=== PATIENT | male | born 1955 | race Caucasian/White ===

== ENCOUNTER 2018-07-19 08:00 | Inpatient (IN) | payer OTHER ==
[2018-07-16 10:58] VITALS: BMI 28.5
[2018-07-19] MEDS ORDERED: BUPIVACAINE LIPOSOME/PF (EXPAREL) 266 MG/20 ML VIAL ONE ×2 (14:20→14:29)
[2018-07-19] MEDS ORDERED: BUPIVACAINE HCL/PF 0.5% (5MG/ML) 10 ML VIAL ONE ×2 (14:20→14:29)
[2018-07-19] MEDS ORDERED: MIDAZOLAM HCL 2 MG/2 ML SINGLE DOSE VIAL ONE ×2 (14:21)
[2018-07-19] MEDS ORDERED: THROMBIN (BOVINE) 5,000 UNIT VIAL TP ONE ×2 (14:36→16:23)
[2018-07-19] MEDS ORDERED: PROPOFOL 20 ML ONE ×14 (14:46→17:36)
[2018-07-19] MEDS ORDERED: HYDROmorphone HCl 2 MG/ML VIAL ONE (15:17)
[2018-07-19] MEDS ORDERED: ceFAZolin SODIUM 1 GM VIAL IVPB ONE (15:30)
[2018-07-19] MEDS ORDERED: VANCOMYCIN 1,000 MG VIAL (RESTRICTED TO ID ONLY) ONE (15:39)
[2018-07-19] MEDS ORDERED: DEXAMETHASONE SOD PHOSPHATE 4 MG/1 ML VIAL ONE ×2 (15:39→15:57)
[2018-07-19] MEDS ORDERED: ceFAZolin SODIUM 1 GM VIAL ONE (15:39)
[2018-07-19] MEDS ORDERED: TRANEXAMIC ACID 1000 MG/10 ML VIAL ONE ×2 (15:39→18:10)
[2018-07-19] MEDS ORDERED: ROCURONIUM BROMIDE 50 MG/5 ML VIAL ONE (15:45)
[2018-07-19] MEDS ORDERED: ONDANSETRON 4 MG/2 ML VIAL ONE (15:45)
[2018-07-19] MEDS ORDERED: VANCOMYCIN 1,000 MG VIAL (RESTRICTED TO ID ONLY) IVPB ONE (15:45)
[2018-07-19] MEDS ORDERED: DEXMEDETOMIDINE HCL 200 MCG/2 ML IVPB ONE ×2 (15:56→16:04)
[2018-07-19] MEDS ORDERED: PHENYLEPHRINE HCL 10 MG/1 ML SINGLE DOSE VIAL ONE (15:59)
[2018-07-19] MEDS ORDERED: GELATIN, ABSORBABLE 12-7MM EACH SPONGE TP ONE (16:23)
[2018-07-19] MEDS ORDERED: NEOSTIGMINE METHYLSULFATE 0.5 MG/1 ML - 10 ML MDV ONE (16:31)
[2018-07-19] MEDS ORDERED: GLYCOPYRROLATE 0.2 MG/1 ML VIAL ONE (16:31)
--- NOTE | 2018-07-19 16:35 | PN ---
Progress Note (short form) - Note Progress Note: 63M POD #0 s/p: 1. Removal of hardware L4-L5 2. Inspection of fusion mass 3. L3 laminectomy 4. Revision laminectomy L4, L5 5. L3, L4, L5 osteotomies (facetectomies) 6. L3-L4 posterior lumbar interbody fusion with discectomy, and placement of biomechanical device (cage) 7. L3-L4 posterior instrumentation 8. L3-L4 posterolateral arthrodesis with bone allograft & bone autograft 9. Complex wound closure (20cm) Note: Intra-operative durotomy repair. -Head of bed flat w/strict bedrest x 48 hours post-op due to durotomy. -Admit to ICU. -Pain control: NO NSAID's. -DVT PPx: -Mechanical only: DAYNE's, SCD's. -Chemical: None. -NPO until flatus. -Monitor drain output: drain strictly to gravity only - IE no suction. -Incentive spirometry q15 min; chest PT. -Tompkins care; d/c when ambulating. -Post-op Ancef x 3 doses. -No bending, lifting (>5 lbs), or twisting for 9-12 months. -Care per ICU & medical hospitalist teams. -Will follow. Samir Tuttle MD (Orthopaedic Surgery).
--- NOTE | 2018-07-19 16:36 | OP ---
Operative Note - Note: Operative Date: 07/19/18 Pre-Operative Diagnosis: Adjacent level disease L3-L4. Radiculopathy. Neurogenic claudication. Back ache Operation: 1. Removal of hardware L4-L5. 2. Inspection of fusion mass. 3. L3 laminectomy. 4. Revision laminectomy L4, L5. 5. L3, L4, L5 osteotomies ( facetectomies). 6. L3-L4 posterior lumbar interbody fusion with discectomy, and placement of biomechanical device (cage). 7. L3-L4 posterior instrumentation. 8. L3-L4 posterolateral arthrodesis with bone allograft & bone autograft. 9. Complex wound closure (20cm) Post-Operative Diagnosis: Same as Pre-op Surgeon: Samir Tuttle Operations And Maintenance Specialist: Declan Tuttle Anesthesiologist/METER CHANGES RECORDS CLERK: Sy Esparza Anesthesia: General Specimens Removed: Hardware. L3-L4 disc Estimated Blood Loss (mls): 400 Drains & Tubes with Location: 1 x superficial HemoVac Fluid Volume Replaced (mls): 3,000 (Crystalloid) Operative Report Dictated: Yes
[2018-07-19] MEDS ORDERED: ONDANSETRON 4 MG/2 ML VIAL IVPUSH PRN (19:23)
[2018-07-19] MEDS ORDERED: ACETAMINOPHEN 1000 MG/100 ML VIAL (NON FORMULARY) IVPB ONE (19:26)
[2018-07-19] MEDS ORDERED: HYDROmorphone *PCA* 10MG/50ML DISP.SYRIN PCA SCH (19:30)
[2018-07-19] MEDS ORDERED: ACETAMINOPHEN INJECTION 100 ML IVPB ONE (19:40)
[2018-07-19] MEDS: ACETAMINOPHEN 1000 MG/100 ML VIAL (NON FORMULARY) IVPB SCH (19:45)
[2018-07-19] MEDS: LACTATED RINGERS SOLUTION 1,000 ML IV SCH (21:00)
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
--- NOTE | 2018-07-19 21:27 | OP ---
DATE OF OPERATION: 07/19/2018 SURGEON: Samir Tuttle MD GROCERY CLERK: Declan Tuttle MD PREOPERATIVE DIAGNOSIS: Adjacent level spinal stenosis, kyphosis, and segmental instability of L3-L4, previous L4-L5 fusion. POSTOPERATIVE DIAGNOSIS: Adjacent level spinal stenosis, kyphosis, and segmental instability of L3-L4, previous L4-L5 fusion. OPERATION PERFORMED: 1. Removal of hardware of L4-L5. 2. Inspection of fusion mass. 3. Laminectomy L3. 4. Revision laminectomy L4. 5. Incidental durotomy with repair. 6. Posterior lumbar interbody fusion with interbody cage insertion. 7. Anterior arthrodesis with autologous bone graft. 8. L3-L4 posterior arthrodesis. 9. L3-L4 pedicle screw instrumentation. 10. Complex wound closure of 20 cm. ANESTHESIA: General. ANTIBIOTICS GIVEN: Kefzol 2 g, 1 g vancomycin preoperative and 1 g Kefzol given at the end of the procedure. NEUROMONITORING: Utilized. INTRAOPERTIVE FLUOROSCOPY: Utilized. BLOOD LOSS: Approximately 400 mL OPERATION DETAILS: Patient correctly identified and brought to the operating room. Patient was placed prone under general anesthesia onto a Wojciech table. All appropriate bony points were padded. The face and eyes were padded. The original incision, after appropriate window draping with the use of betadine scrub solution, wiped off with alcohol, and DuraPrep being applied, a midline incision was made extending this proximally by about an inch and a half. This gave a 20-cm wound. The dissection was taken through the skin and subcutaneous tissue down to the spinous process. A subperiosteal dissection was performed exposing the spinous process of L3 as well as L2 and extending all of the way down to L5, because of the hardness of the tissues and enabled adequate exposure to the area of L3, L4, and L5. The L3-L4 level was identified clearly and dissection was taken down to the interspinous plane and then out obliquely to the hardware that was in situ. This was old DePuy instrumentation, which was removed without any difficulty. The mass was inspected and found to be completely solidly fused. New screws at L3 were inserted using anatomical guidelines as the entry point of the routine insertion points for pedicle screws in the laminar process and the transection of the superior facet and transverse process. At that point, the drill was inserted into the pedicle. This 4.5 drill enabled easy passage for a 45 x 6.5 Precision screw. This enabled solid fixation at L3 on both the left- and right-hand sides. New Prescription screws were seated at L4 on the left- and right-hand side. These screws were tested with intraoperative neuromonitoring and evaluated with fluoroscopic x-ray. No complications were seen on AP and lateral fluoroscopic x-rays. The screws were tested well above the 30 mm parameters, as noted. Once the screws had been seated, a complete laminectomy of L3 was performed. This posed to be extremely difficulty because of the adherence and stuck down area of stenosis. This correlated with the weakness in the thighs and the neuromonitoring revealed neural readings into the thigh musculature. Once the laminectomy at L2 was performed using lateral osteotomes, the pars interarticularis was longitudinally incised to open the canal followed by imploding the bone inwards towards the canal and then delivering the bone completely at L3 and extending this down to the revision of the original L4 level as this was blocked up with bone and fibrous tissue. Extensive stenosis encountered at the L3-L4 level. This was tediously removed using 4, 5, and 6 Kerrison rongeurs. The theca was completely freed. Two small dural tears because of the adherence of the dura to the back portion of the new bone formation of the lamina of L4 was noted and these were sutured with 4-0 nylon with 2 separate sequential Valsalva maneuvers to 40 mmHg being pumped into the lung palm to expand the theca and this resulted in a water-tight seal. Surgicel with fibrin glue was sprayed over the water-tight suture line of the dura and again adding additional seal to the actual durotomy. Once this was performed, the theca at the level of L3-L4 from the right side was retracted. Epidural blades were dealt with, with bipolar Bovie. This resulted in very adequate exposure of the disk at L3-L4. An elliptical incision of the annulus was performed, shaving this to size 13 and all disk material was removed. Serrated curettes enabled us to ensure that all disk material was removed with the endplates. The interbody plane was then packed with bone. This was bone harvested from the posterior elements and packed into the interbody space to provide the anterior arthrodesis. Once this had been performed, the Biomechanical inter-disk device was placed. This was packed with bone graft itself and seated solidly into the disk space opening up the disk space and foramen appropriately. The screws, which had already been seated, were then used for fixation of the 2 rods. These were seated into tulips and fixed solidly into position. One crosslink applied to provide a solid construct fixation. The muscle was then gently retracted off of the transverse processes and the intertransverse plane was packed with autologous bone graft mixed with allograft putty to provide a very adequate bone grafting between the L3 and L4 transverse processes. That was bone graft to raw bone appropriately. The wounds were thoroughly lavaged throughout the procedure. The dura was then repeat inspected for a dural tear, which proved to be once again negative. The muscle was appropriately debrided following the entire procedure. The closure was as follows: Muscle 1 Vicryl, fascia 1 Vicryl, subcutaneous tissue 1 and 2-0 Vicryl, skin with linnea. Drainage: One-eighth inch Hemovac to gravity. This was accomplished. Wound closure was 20 cm. OVERALL COMMENT: Difficult operation because of the adherence of the dura to the adjacent level stenotic region. The dura had become encased in part of the bone bed necessitating appropriate dural repair. At the end of the procedure, all principles were appropriately met accordingly. Plan for routine postoperative care. MD DANYEL Dodson/[id number]
--- NOTE | 2018-07-19 21:39 | PN ---
Physical Exam: SUBJECTIVE: 63 year old male with history of CAD with 1 stent and tobacco use who is POD #0 s/p: 1. Removal of hardware L4-L5 2. Inspection of fusion mass 3. L3 laminectomy 4. Revision laminectomy L4, L5 5. L3, L4, L5 osteotomies (facetectomies) 6. L3-L4 posterior lumbar interbody fusion with discectomy, and placement of biomechanical device (cage) 7. L3-L4 posterior instrumentation 8. L3-L4 posterolateral arthrodesis with bone allograft & bone autograft 9. Complex wound closure (20cm) Patient was seen and examined. He reports back pain. He has a JEWELER APPRENTICE analgesic pump and instructed to use when needed. Blood pressure and heart rate are normal. He is afebrile. He denies chest pain, shortness of breath, or dizziness. He is moving both legs with good sensation. OBJECTIVE: Vital Signs Period Temp Pulse Resp BP Sys/العلي Pulse Ox Last 24 Hr 99.3 F 70-82 14-16 101-114/69-78 95-100 GENERAL:awake, alert, and fully oriented HEAD: normal with no signs of trauma EYES: pupils equal round and reactive ENT: ears normal NECK: limited ROM LUNGS: breath sounds equal clear to auscultation bilaterally no wheezes no crackles no accessory muscle use HEART: regular rate and rhythm S1 S2 without murmur ABDOMEN: soft and nontender EXTREMITIES: 2+ pulses warm well-perfused no edema NEUROLOGICAL: normal speech follows commands appropriately good sensation to bilateral lower extremities reports less sensation to his big toes on touch, moving bilateral lower extremities and able to wiggle his toes PSYCH: mood normal SKIN: warm dry no rashes or lesions noted Laboratory Results - last 24 hr 07/19/18 07/19/18 10:33 11:30 Blood Type O NEGATIVE O NEGATIVE Antibody Screen Negative Active Medications Generic Name Dose Route Start Last Admin Trade Name Freq PRN Reason Stop Dose Admin Acetaminophen 1,000 mg 07/19/18 19:30 07/19/18 19:45 Ofirmev Injection - IVPB 07/20/18 11:31 1,000 mg Q8H LUCY Administration Acetaminophen 650 mg 07/20/18 18:00 Tylenol - PO Q6HPO LUCY Hydromorphone HCl 10 mg 07/19/18 19:30 07/19/18 19:30 Dilaudid Proofsheet Corrector - JEWELER APPRENTICE 07/26/18 19:27 10 mg JEWELER APPRENTICE LUCY Administration Protocol Lactated Ringer's 1,000 mls @ 125 mls/hr 07/19/18 19:30 07/19/18 21:00 Lactated Ringers Solution IV 0 mls ASDIR LUCY Administration Cefazolin Sodium/Dextrose 2 gm in 50 mls @ 100 mls/hr 07/20/18 00:00 Ancef 2 Gm Premixed Ivpb - IVPB 07/20/18 08:29 Q8H LUCY Ondansetron HCl 4 mg 07/19/18 19:23 Zofran Injection IVPUSH Q6H PRN NAUSEA AND/OR VOMITING Oxycodone HCl 10 mg 07/19/18 22:00 Oxycontin - PO 07/20/18 21:59 BID LUCY ASSESSMENT/PLAN: 63M POD #0 s/p: 1. Removal of hardware L4-L5 2. Inspection of fusion mass 3. L3 laminectomy 4. Revision laminectomy L4, L5 5. L3, L4, L5 osteotomies (facetectomies) 6. L3-L4 posterior lumbar interbody fusion with discectomy, and placement of biomechanical device (cage) 7. L3-L4 posterior instrumentation 8. L3-L4 posterolateral arthrodesis with bone allograft & bone autograft 9. Complex wound closure (20cm) Patient is hemodynamically stable and afebrile. -Continue with pain management- no NSAID's. -DVT Prophylaxsis with SCD's and TEDS,no oral anticoagulation as contraindicated. -NPO until flatus. -Monitor drain output: drain strictly to gravity only - IE no suction. -Incentive spirometry q15 min; chest PT. -Tompkins care; d/c when ambulating. -Continue with post-op ancef x 3 doses. -As per Orthopedics he is to avoid bending, lifting (>5 lbs), or twisting for 9- 12 months. Visit type - Emergency Visit Emergency Visit: No - New Patient This patient is new to me today: Yes Date on this admission: 07/19/18 - Critical Care Critical Care patient: No
[2018-07-19] MEDS: oxyCODONE HCL 10 MG SUSTAINED ACTING TABLET PO SCH (22:29)
[2018-07-19] MEDS: MUPIROCIN 2% TOPICAL OINTMENT FOR DECOLONIZATION NS SCH (22:30)
[2018-07-19] MEDS: CHLORHEXIDINE GLUCONATE 4% CLEANSER FOR DECOLONIZATION TP SCH (22:31)
[2018-07-20] MEDS ORDERED: ceFAZolin 2 GRAM PREMIX BAG IVPB SCH (01:00)
[2018-07-20] MEDS: ACETAMINOPHEN 1000 MG/100 ML VIAL (NON FORMULARY) IVPB SCH ×2 (03:30→12:00)
[2018-07-20 06:45] LABS: HEMATOCRIT 36.8 % (35.4-49); HEMOGLOBIN 12.7 GM/dL (11.7-16.9); MCHC 34.5 g/dl (32.0-35.9); MEAN CELL VOLUME 101.6 fl (80-96); MEAN PLT VOLUME 8.1 fl (7.5-11.1); PLATELET COUNT 252 K/MM3 (134-434); RBC 3.62 M/mm3 (4.00-5.60); RDW 13.2 % (11.9-15.9); WHITE BLOOD COUNT 10.3 K/mm3 (4.0-10.0)
[2018-07-20 07:11] LABS: INR 0.96 (0.83-1.09); PROTHROMBIN TIME (PATIENT) 11.3 SEC (9.7-13.0)
[2018-07-20 07:14] LABS: ACTIVATED PTT 26.2 SECONDS (25.2-36.5)
[2018-07-20 07:19] LABS: ANION GAP 5 MMOL/L (8-16); BLOOD UREA NITROGEN 14 mg/dL (7-18); CALCIUM 8.8 mg/dL (8.5-10.1); CHLORIDE 106 mmol/L (98-107); CO2 28 mmol/L (21-32); CREATININE 0.8 mg/dL (0.55-1.3); GLUCOSE,RANDOM 100 mg/dL (74-106); MAGNESIUM 1.5 mg/dL (1.8-2.4); PHOSPHOROUS 4.6 mg/dL (2.5-4.9); POTASSIUM 4.9 mmol/L (3.5-5.1); SODIUM 139 mmol/L (136-145)
[2018-07-20] MEDS: CEFAZOLIN 2 GM/D5W 2 GM/50 ML ML IVPB SCH ×2 (07:39)
[2018-07-20] MEDS ORDERED: MAGNESIUM SULF 50% (8.12 MEQ/2 ML-1 GM VIAL) IVPB ONE (07:45)
[2018-07-20] MEDS ORDERED: NICOTINE 14 MG/24 HOURS TOPICAL PATCH TD PRN (08:36)
--- NOTE | 2018-07-20 10:25 | PN ---
Progress Note, Physician Chief Complaint: Lumbar fusion post op day one History of Present Illness: s/p removal of hardware lumbar and fusion, peripheral nerve block with brushing machine operator for post op pain control - Current Medication List Current Medications: Active Medications Acetaminophen (Ofirmev Injection -) 1,000 mg IVPB Q8H [facility] Stop: 07/20/18 11:31 Last Admin: 07/20/18 03:30 Dose: 1,000 mg Acetaminophen (Tylenol -) 650 mg PO Q6HPO [facility] Chlorhexidine Gluconate (Hibiclens For Decolonization -) 1 applic TP HS [facility] Last Admin: 07/19/18 22:31 Dose: 1 applic Hydromorphone HCl (Dilaudid Sociology Instructor -) 10 mg BOTTLE FILLER BOTTLE FILLER [facility]; Protocol Stop: 07/26/18 19:27 Lactated Ringer's (Lactated Ringers Solution) 1,000 mls @ 125 mls/hr IV ASDIR [facility] Last Admin: 07/19/18 21:00 Dose: 0 mls Mupirocin (Bactroban Ointment (For Decolonization) -) 1 applic NS BID [facility] Stop: 07/24/18 21:59 Last Admin: 07/19/18 22:30 Dose: 1 applic Nicotine (Nicoderm Patch -) 14 mg TD DAILY PRN PRN Reason: WITHDRAWAL(CONT SUBST) Ondansetron HCl (Zofran Injection) 4 mg IVPUSH Q6H PRN PRN Reason: NAUSEA AND/OR VOMITING Oxycodone HCl (Oxycontin -) 10 mg PO BID [facility] Stop: 07/20/18 21:59 Last Admin: 07/19/18 22:29 Dose: Not Given - Objective Vital Signs: Vital Signs Temperature 98.1 F 07/20/18 10:00 Pulse Rate 76 07/20/18 10:00 Respiratory Rate 11 07/20/18 10:00 Blood Pressure 135/85 07/20/18 10:00 O2 Sat by Pulse Oximetry (%) 96 07/19/18 21:00 Constitutional: Yes: Well Nourished, Mild Distress Cardiovascular: Yes: WNL Respiratory: Yes: WNL Gastrointestinal: Yes: WNL Labs: CBC, BMP 07/20/18 05:30 07/20/18 05:30 INR, PTT INR 0.96 (0.83-1.09) 07/20/18 05:30 Assessment/Plan Pain not controlled by brushing machine operator, will increase demand dose and start continuous. dept of anesthesia will continue to manage BOTTLE FILLER. No other adverse anesthetic complications.
[2018-07-20] MEDS: HYDROmorphone *PCA* 10MG/50ML DISP.SYRIN PCA SCH (10:40)
[2018-07-20] MEDS: MUPIROCIN 2% TOPICAL OINTMENT FOR DECOLONIZATION NS SCH ×2 (11:54→22:15)
--- NOTE | 2018-07-20 12:08 | PN ---
Teaching Attending Note Name of Resident: Gilbert Silverman ATTENDING PHYSICIAN STATEMENT I saw and evaluated the patient. I reviewed the resident's note and discussed the case with the resident. I agree with the resident's findings and plan as documented. SUBJECTIVE: Patient seen and examined in the ICU. Awake and alert. Reports significant pain but has not been pressing MANAGER ONCOLOGY. Reports some improvement with proper use. No CP or SOB. Intake & Output 07/17/18 07/18/18 07/19/18 07/20/18 23:59 23:59 23:59 23:59 Intake Total 3400 1550 Output Total 2100 20 Balance 1300 1530 Weight 210 lb Last Vital Signs Temp Pulse Resp BP Pulse Ox 98.1 F 92 H 17 120/75 95 07/20/18 10:00 07/20/18 10:40 07/20/18 10:40 07/20/18 10:40 07/20/18 09:00 Active Medications Acetaminophen (Tylenol -) 650 mg PO Q6HPO [facility] Chlorhexidine Gluconate (Hibiclens For Decolonization -) 1 applic TP HS [facility] Last Admin: 07/19/18 22:31 Dose: 1 applic Hydromorphone HCl (Dilaudid [place] Miner Blasting -) 10 mg MANAGER ONCOLOGY MANAGER ONCOLOGY [facility]; Protocol Stop: 07/26/18 19:27 Last Admin: 07/20/18 10:40 Dose: 10 mg Lactated Ringer's (Lactated Ringers Solution) 1,000 mls @ 125 mls/hr IV ASDIR [facility] Last Admin: 07/19/18 21:00 Dose: 0 mls Mupirocin (Bactroban Ointment (For Decolonization) -) 1 applic NS BID [facility] Stop: 07/24/18 21:59 Last Admin: 07/19/18 22:30 Dose: 1 applic Nicotine (Nicoderm Patch -) 14 mg TD DAILY PRN PRN Reason: WITHDRAWAL(CONT SUBST) Ondansetron HCl (Zofran Injection) 4 mg IVPUSH Q6H PRN PRN Reason: NAUSEA AND/OR VOMITING Oxycodone HCl (Oxycontin -) 10 mg PO BID [facility] Stop: 07/20/18 21:59 Last Admin: 07/19/18 22:29 Dose: Not Given GENERAL: Awake, alert, and fully oriented, in no acute distress. HEAD: Normal with no signs of trauma. EYES: sclera anicteric, conjunctiva clear. No lid lag. THROAT: dry mucous membranes. NECK: no JVD, or masses. LUNGS: Breath sounds equal, clear to auscultation bilaterally. No wheezes, and no crackles. No accessory muscle use. HEART: Regular rate and rhythm, normal S1 and S2 without murmur ABDOMEN: Soft, nontender, not distended, normoactive bowel sounds, no guarding, no rebound, no masses. No hepatomegaly or splenomegaly. UPPER EXTREMITIES: 2+ pulses, warm, well-perfused. No cyanosis. No clubbing. Cap refill <2 seconds. No peripheral edema. LOWER EXTREMITIES: 2+ pulses, warm, well-perfused. No calf tenderness. No peripheral edema. NEUROLOGICAL: Normal speech. strength BL UE 5/5 and UE sensation intact; BL LE strength 3/5 bl with decreased sensation of palmar and dorsal feet Laboratory Results - last 24 hr 07/19/18 07/20/18 07/20/18 11:30 05:30 05:30 WBC 10.3 H RBC 3.62 L Hgb 12.7 Hct 36.8 MCV 101.6 H MCH 35.0 H MCHC 34.5 RDW 13.2 Plt Count 252 MPV 8.1 PT with INR INR PTT (Actin FS) Sodium 139 Potassium 4.9 Chloride 106 Carbon Dioxide 28 Anion Gap 5 L BUN 14 Creatinine 0.8 Creat Clearance w eGFR 98.28 Random Glucose 100 Calcium 8.8 Phosphorus 4.6 Magnesium 1.5 L Blood Type O NEGATIVE 07/20/18 05:30 WBC RBC Hgb Hct MCV MCH MCHC RDW Plt Count MPV PT with INR 11.30 INR 0.96 PTT (Actin FS) 26.2 Sodium Potassium Chloride Carbon Dioxide Anion Gap BUN Creatinine Creat Clearance w eGFR Random Glucose Calcium Phosphorus Magnesium Blood Type ASSESSMENT/PLAN: CAD POD #1: 1. Removal of hardware L4-L5 2. Inspection of fusion mass 3. L3 laminectomy 4. Revision laminectomy L4, L5 5. L3, L4, L5 osteotomies (facetectomies) 6. L3-L4 posterior lumbar interbody fusion with discectomy, and placement of biomechanical device (cage) 7. L3-L4 posterior instrumentation 8. L3-L4 posterolateral arthrodesis with bone allograft & bone autograft 9. Complex wound closure (20cm) Pain control with Dilaudid MANAGER ONCOLOGY O2 as needed Incentive Spirometry VTE prophylaxis No NSAIDS NPO until flatus Strict drain monitoring D/C Tompkins once OOB Post-op Ancef x 3 doses. Floor when cleared by surgery Dr Vaz
[2018-07-20] MEDS: oxyCODONE HCL 10 MG SUSTAINED ACTING TABLET PO SCH (12:17)
--- NOTE | 2018-07-20 15:37 | PN ---
Physical Exam: SUBJECTIVE: Patient seen and examined HD# 2 ICU Day 2 POD 1 Overnight Events: Pt received into ICU from OR. Pt reported pain to operative site this morning but indicated to nurse he was unsure of how to use CONTROL CLERK SUBASSEMBLY pump. Nurse provided education and pt reports improved pain control. Denies chest pain, shortness of breath, or weakness/numbness. OBJECTIVE: Vital Signs Period Temp Pulse Resp BP Sys/العلي Pulse Ox Last 24 Hr 97 F-99.9 F 62-92 11-24 101-135/52-98 95-100 Intake & Output 07/20/18 07/20/18 07/20/18 06:59 14:59 22:59 Intake Total 1550 Output Total 1285 Balance 265 Intake: IV 1500 Lactated Ringers Solution 1500 1,000 ml @ 125 mls/hr IV ASDIR LUCY Rx#: [id number] IVPB 50 Output: Drainage 85 Back 85 Urine 1200 Tompkins 1200 Other: Voiding Method Indwelling Catheter Bowel Movement No Lines: - PIV Drains: - Tompkins - Wound drain Supplemental Oxygen: None 12 Hour I/Os (thus far): I/Os not strictly monitored. Physical Exams: GENERAL: The patient is awake, alert, and fully oriented, in no acute distress. HEAD: Normal with no signs of trauma. LUNGS: Breath sounds equal, clear to auscultation bilaterally, no wheezes, no crackles, no accessory muscle use. HEART: Regular rate and rhythm, S1, S2 without murmur, rub or gallop. ABDOMEN: Soft, nontender, nondistended. EXTREMITIES: 2+ pulses, warm, well-perfused, no edema. NEUROLOGICAL: Moving all four extremities spontaneously. PSYCH: Normal mood, normal affect. SKIN: Warm and dry. Drips: - LR @ 125 Anti Infectives: - Ancef Laboratory Results - last 24 hr 07/20/18 07/20/18 07/20/18 05:30 05:30 05:30 WBC 10.3 H RBC 3.62 L Hgb 12.7 Hct 36.8 MCV 101.6 H MCH 35.0 H MCHC 34.5 RDW 13.2 Plt Count 252 MPV 8.1 PT with INR 11.30 INR 0.96 PTT (Actin FS) 26.2 Sodium 139 Potassium 4.9 Chloride 106 Carbon Dioxide 28 Anion Gap 5 L BUN 14 Creatinine 0.8 Creat Clearance w eGFR 98.28 Random Glucose 100 Calcium 8.8 Phosphorus 4.6 Magnesium 1.5 L Active Medications Generic Name Dose Route Start Last Admin Trade Name Freq PRN Reason Stop Dose Admin Acetaminophen 650 mg 07/20/18 18:00 Tylenol - PO Q6HPO [facility] Chlorhexidine Gluconate 1 applic 07/19/18 22:00 07/19/18 22:31 Hibiclens For Decolonization - TP 1 applic HS LUCY Administration Hydromorphone HCl 10 mg 07/20/18 10:22 07/20/18 10:40 Dilaudid Clinical Resource Director - CONTROL CLERK SUBASSEMBLY 07/26/18 19:27 10 mg CONTROL CLERK SUBASSEMBLY LUCY Administration Protocol Lactated Ringer's 1,000 mls @ 125 mls/hr 07/19/18 19:30 07/19/18 21:00 Lactated Ringers Solution IV 0 mls ASDIR LUCY Administration Mupirocin 1 applic 07/19/18 22:00 07/20/18 11:54 Bactroban Ointment (For Decolonization) - NS 07/24/18 21:59 1 applic BID LUCY Administration Nicotine 14 mg 07/20/18 08:36 Nicoderm Patch - TD DAILY PRN WITHDRAWAL(CONT SUBST) Ondansetron HCl 4 mg 07/19/18 19:23 Zofran Injection IVPUSH Q6H PRN NAUSEA AND/OR VOMITING Oxycodone HCl 10 mg 07/19/18 22:00 07/20/18 12:17 Oxycontin - PO 07/20/18 21:59 Not Given BID [facility] ASSESSMENT/PLAN: 63 year old male with history of L4,L5 fusion, CAD s/p stent. S/p: 1. Removal of hardware L4-L5 2. Inspection of fusion mass 3. L3 laminectomy 4. Revision laminectomy L4, L5 5. L3, L4, L5 osteotomies (facetectomies) 6. L3-L4 posterior lumbar interbody fusion with discectomy, and placement of biomechanical device (cage) 7. L3-L4 posterior instrumentation 8. L3-L4 posterolateral arthrodesis with bone allograft & bone autograft 9. Complex wound closure (20cm) Surgery complicated by intraoperative durotomy. Post-op care plan per Dr. Tuttle. Neuro (& Psych): - A/O x4. No sedation drips. - S/p lumbar spinal surgery as detailed above. Head of bed flat w/strict bedrest x 48 hours post-op due to durotomy. [facility]. - Pain control: Dilaudid CONTROL CLERK SUBASSEMBLY with oxycodone for breakthrough. No NSAIDS. - Zofran PRN for nausea. - Active smoker. Ordered Nicotine patch PRN. Endocrine: - Hypomagnesemia this morning. Replenished. - Will continue to trend electrolyte. Cardiovascular: - CAD holding antiplatelet therapy given recent surgery Pulm / Resp: - Transitioned from nasal cannula to room air without difficulty. - Encouraged IS Genitourinary: - Tompkins until ambulatory Hematologic: - H/H stable this morning. - Drain to gravity. Monitor output. Infectious Disease: - Post-op Ancef x3 doses Musculoskeletal: - No bending, lifting (>5 lbs), or twisting for 9-12 months FEN: - IVF - NPO. Will advance to clear sips but not full clear diet for 48 hours for aspiration precautions. Prophylaxis: - DVT: DAYNE's, SCD's. - GI: Not indicated. Dispo: Pt to remain in ICU for further post-op monitoring and neuro checks. Gilbert Silverman MD, PGY1 ICU Consult Service Visit type - Emergency Visit Emergency Visit: No - New Patient This patient is new to me today: Yes Date on this admission: 07/20/18 - Critical Care Critical Care patient: Yes Total Critical Care Time (in minutes): 40 Critical Care Statement: The care of this patient involved high complexity decision making to prevent further life threatening deterioration of the patient 's condition and/or to evaluate & treat vital organ system(s) failure or risk of failure.
--- NOTE | 2018-07-20 18:06 | PN ---
Physical Exam: SUBJECTIVE: Patient seen and examined 24HR EVENTS: - s/p L3 laminectomy with hardware removal - pt to be in supine x 48hours OBJECTIVE: Vital Signs Period Temp Pulse Resp BP Sys/العلي Pulse Ox Last 24 Hr 97 F-99.9 F 62-92 10 101-135/52-98 95-100 GENERAL: The patient is awake, alert, and fully oriented, in no acute distress. HEAD: Normal with no signs of trauma. EYES: PERRL, extraocular movements intact, sclera anicteric, conjunctiva clear. No ptosis. ENT: nares patent, oropharynx clear without exudates, moist mucous membranes. NECK: Trachea midline, full range of motion, supple. LUNGS: Breath sounds equal, clear to auscultation bilaterally, no wheezes, no crackles, no accessory muscle use. HEART: Regular rate and rhythm, S1, S2 without murmur, rub or gallop. ABDOMEN: Soft, nontender, nondistended, normoactive bowel sounds, no guarding, no rebound, no hepatosplenomegaly, no masses. EXTREMITIES: 2+ pulses, warm, well-perfused, no edema. NEUROLOGICAL: normal sensation in extremties. Normal speech, gait not observed. PSYCH: Normal mood, normal affect. SKIN: Warm, dry, normal turgor, extensive tattoos Laboratory Results - last 24 hr 07/20/18 07/20/18 07/20/18 05:30 05:30 05:30 WBC 10.3 H RBC 3.62 L Hgb 12.7 Hct 36.8 MCV 101.6 H MCH 35.0 H MCHC 34.5 RDW 13.2 Plt Count 252 MPV 8.1 PT with INR 11.30 INR 0.96 PTT (Actin FS) 26.2 Sodium 139 Potassium 4.9 Chloride 106 Carbon Dioxide 28 Anion Gap 5 L BUN 14 Creatinine 0.8 Creat Clearance w eGFR 98.28 Random Glucose 100 Calcium 8.8 Phosphorus 4.6 Magnesium 1.5 L Active Medications Generic Name Dose Route Start Last Admin Trade Name Freq PRN Reason Stop Dose Admin Acetaminophen 650 mg 07/20/18 18:00 Tylenol - PO Q6HPO LUCY Chlorhexidine Gluconate 1 applic 07/19/18 22:00 07/19/18 22:31 Hibiclens For Decolonization - TP 1 applic HS LUCY Administration Hydromorphone HCl 10 mg 07/20/18 10:22 07/20/18 10:40 Dilaudid Commodities Requirements Analyst - GRAZING EXAMINER 07/26/18 19:27 10 mg GRAZING EXAMINER LUCY Administration Protocol Lactated Ringer's 1,000 mls @ 125 mls/hr 07/19/18 19:30 07/19/18 21:00 Lactated Ringers Solution IV 0 mls ASDIR LUCY Administration Mupirocin 1 applic 07/19/18 22:00 07/20/18 11:54 Bactroban Ointment (For Decolonization) - NS 07/24/18 21:59 1 applic BID LUCY Administration Nicotine 14 mg 07/20/18 08:36 Nicoderm Patch - TD DAILY PRN WITHDRAWAL(CONT SUBST) Ondansetron HCl 4 mg 07/19/18 19:23 Zofran Injection IVPUSH Q6H PRN NAUSEA AND/OR VOMITING Oxycodone HCl 10 mg 07/19/18 22:00 07/20/18 12:17 Oxycontin - PO 07/20/18 21:59 Not Given BID [facility] ASSESSMENT/PLAN: 63 year old male with history of CAD s/p PCI, tobacco use and LE paresthesias now POD #1 s/p removal of hardware lumbar and fusion, peripheral nerve block with iron guardrail installer for post op pain control -Pain management with dilaudid GRAZING EXAMINER . NO NSAID's. -DVT Prophylaxsis with SCD's and TEDS, oral anticoagulation as contraindicated. -NPO until flatus. -Monitor drain output: drain strictly to gravity only -LR at 125ml/hr -Incentive spirometry q15 min; chest PT. -Tompkins care; d/c when ambulating. -Completed ancef x 3 doses. -As per Orthopedics he is to avoid bending, lifting (>5 lbs), or twisting for 9- 12 months. Problem List - Problems (1) Prophylactic measure Code(s): Z29.9 - ENCOUNTER FOR PROPHYLACTIC MEASURES, UNSPECIFIED (2) Tobacco dependence Code(s): F17.200 - NICOTINE DEPENDENCE, UNSPECIFIED, UNCOMPLICATED (3) Back pain Code(s): M54.9 - DORSALGIA, UNSPECIFIED Qualifiers: Back pain location: low back pain Chronicity: chronic Back pain laterality: bilateral Sciatica presence: with sciatica Sciatica laterality: sciatica of right side Qualified Code(s): M54.41 - Lumbago with sciatica, right side; G89.29 - Other chronic pain Visit type - Emergency Visit Emergency Visit: No - New Patient This patient is new to me today: Yes Date on this admission: 07/20/18 - Critical Care Critical Care patient: Yes Total Critical Care Time (in minutes): 40 Critical Care Statement: The care of this patient involved high complexity decision making to prevent further life threatening deterioration of the patient 's condition and/or to evaluate & treat vital organ system(s) failure or risk of failure. - Discharge Referral Referred to [facility] Med P.C.: No
[2018-07-20] MEDS: ACETAMINOPHEN 325 MG TABLET (FP) PO SCH ×2 (18:10→20:00)
[2018-07-20] MEDS: LACTATED RINGERS SOLUTION 1,000 ML IV SCH (20:05)
[2018-07-20] MEDS: CHLORHEXIDINE GLUCONATE 4% CLEANSER FOR DECOLONIZATION TP SCH (22:15)
[2018-07-21] MEDS: ACETAMINOPHEN 325 MG TABLET (FP) PO SCH ×4 (01:37→17:31)
[2018-07-21] MEDS: HYDROmorphone *PCA* 10MG/50ML DISP.SYRIN PCA SCH ×2 (03:36→20:34)
[2018-07-21 06:56] LABS: HEMOGLOBIN 11.4 GM/dL (11.7-16.9); MCH 34.8 pg (25.7-33.7); MCHC 34.5 g/dl (32.0-35.9); MEAN CELL VOLUME 100.9 fl (80-96); MEAN PLT VOLUME 8.4 fl (7.5-11.1); PLATELET COUNT 201 K/MM3 (134-434); RBC 3.27 M/mm3 (4.00-5.60); RDW 13.2 % (11.9-15.9)
[2018-07-21 07:13] LABS: ANION GAP 5 MMOL/L (8-16); BLOOD UREA NITROGEN 9 mg/dL (7-18); CALCIUM 8.3 mg/dL (8.5-10.1); CHLORIDE 99 mmol/L (98-107); CO2 30 mmol/L (21-32); CREATININE 0.7 mg/dL (0.55-1.3); GLUCOSE,RANDOM 97 mg/dL (74-106); MAGNESIUM 1.6 mg/dL (1.8-2.4); PHOSPHOROUS 2.2 mg/dL (2.5-4.9); POTASSIUM 3.6 mmol/L (3.5-5.1); SODIUM 134 mmol/L (136-145)
[2018-07-21] MEDS ORDERED: MAGNESIUM SULF 50% (8.12 MEQ/2 ML-1 GM VIAL) IVPB ONE (07:25)
[2018-07-21] MEDS ORDERED: POTASSIUM CHLORIDE ORAL LIQUID 20 MEQ/15 ML PO ONE (09:15)
[2018-07-21] MEDS: MUPIROCIN 2% TOPICAL OINTMENT FOR DECOLONIZATION NS SCH ×2 (10:56→22:35)
--- NOTE | 2018-07-21 10:57 | PN ---
Progress Note (short form) - Note Progress Note: Anesthesiology Pain Service 63 y.o. man POD#2 s/p lumbar PLIF on SENIOR SALES MANAGER for post-op pain. Pt. is supine in bed and c/o pain with flexion of back. He states that he can't get into an upright position without significant pain. At moment, he states that the pain is about 7-10/10. SENIOR SALES MANAGER has helped a little. He otherwise has no complaints. The pt. states that he was on a regimen of PO meds for a short time prior to undergoing surgery that did help somewhat. VSS. 63 y.o. man with pain post-op PLIF. I d/w pt. to d/c SENIOR SALES MANAGER and instead switch him to a scheduled dosing of PO oxycontin as well as PRN doses of oxycodone for breakthrough pain in hopes of getting pain under control. He and RN are agreeable with this plan. Please consult Anesthesiology if any issue arises with these changes.
[2018-07-21] MEDS ORDERED: oxyCODONE HCL 10 MG SUSTAINED ACTING TABLET PO SCH ×3 (11:00→22:00)
[2018-07-21] MEDS: oxyCODONE HCL 5 MG TABLET PO PRN ×4 (11:29→20:45)
--- NOTE | 2018-07-21 11:52 | PN ---
Progress Note, Physician History of Present Illness: Seen and examined at bedside. Passing flatus, tolerating liquid diet, still in pain while despite being on DIRECT MAIL COORDINATOR, did not receive any PO pain relief. - Current Medication List Current Medications: Active Medications Acetaminophen (Tylenol -) 650 mg PO Q6HPO [facility] Last Admin: 07/21/18 05:45 Dose: 650 mg Chlorhexidine Gluconate (Hibiclens For Decolonization -) 1 applic TP HS [facility] Last Admin: 07/20/18 22:15 Dose: 1 applic Lactated Ringer's (Lactated Ringers Solution) 1,000 mls @ 125 mls/hr IV ASDIR [facility] Last Admin: 07/20/18 20:05 Dose: 125 mls/hr Mupirocin (Bactroban Ointment (For Decolonization) -) 1 applic NS BID [facility] Stop: 07/24/18 21:59 Last Admin: 07/21/18 10:56 Dose: 1 applic Nicotine (Nicoderm Patch -) 14 mg TD DAILY PRN PRN Reason: WITHDRAWAL(CONT SUBST) Ondansetron HCl (Zofran Injection) 4 mg IVPUSH Q6H PRN PRN Reason: NAUSEA AND/OR VOMITING Oxycodone HCl (Roxicodone -) 5 mg PO Q3H PRN PRN Reason: PAIN LEVEL 1-5 Last Admin: 07/21/18 11:29 Dose: 5 mg Oxycodone HCl (Roxicodone -) 10 mg PO Q3H PRN PRN Reason: PAIN LEVEL 6-10 Oxycodone HCl (Oxycontin -) 20 mg PO BID [facility] Stop: 07/24/18 10:47 - Objective Vital Signs: Vital Signs Temperature 98.6 F 07/21/18 10:00 Pulse Rate 85 07/21/18 10:00 Respiratory Rate 23 H 07/21/18 10:00 Blood Pressure 110/73 07/21/18 10:00 O2 Sat by Pulse Oximetry (%) 95 07/21/18 09:00 Constitutional: Yes: Calm Cardiovascular: Yes: Regular Rate and Rhythm, S1, S2. No: Murmur Respiratory: Yes: CTA Bilaterally Gastrointestinal: Yes: Normal Bowel Sounds, Soft. No: Tenderness Edema: No Neurological: Yes: Alert, Oriented Labs: CBC, BMP 07/21/18 05:30 07/21/18 05:30 INR, PTT INR 0.96 (0.83-1.09) 07/20/18 05:30 Impression/Plan Impression/Plan: 63 y/o M L4,L5 fusion, CAD s/p stent s/p spinal surgery (refer to ortho note for details of procedures) now POD 2: MSK: s/p spinal surgery POD2 - cont. head of bed flat w/strict bedrest x 48 hours post-op due to durotomy - neuro checks qShift. - Pain control: d/c DIRECT MAIL COORDINATOR by anesthesia, will re-start percocet - Zofran PRN for nausea. - No bending, lifting (>5 lbs), or twisting for 9-12 months Cardiovascular: - CAD holding antiplatelet therapy given recent surgery Pulm / Resp: - Stable Genitourinary: - Tompkins until ambulatory Hematologic: - cont. to monitor H/H FEN: - follow lytes - liquid diet, advance per ortho Prophylaxis: - DVT: DAYNE's, SCD's. - GI: Not indicated. Dispo: Pt to remain in ICU for further post-op monitoring and neuro checks. Adair Castro PGY3 Visit type - Emergency Visit Emergency Visit: No - New Patient This patient is new to me today: No - Critical Care Critical Care patient: Yes Total Critical Care Time (in minutes): 35 Critical Care Statement: The care of this patient involved high complexity decision making to prevent further life threatening deterioration of the patient 's condition and/or to evaluate & treat vital organ system(s) failure or risk of failure.
--- NOTE | 2018-07-21 12:13 | PN ---
Teaching Attending Note Name of Resident: Adair Castro ATTENDING PHYSICIAN STATEMENT I saw and evaluated the patient. I reviewed the resident's note and discussed the case with the resident. I agree with the resident's findings and plan as documented. SUBJECTIVE: Pt seen and examined in the ICU. Still with significant pain. Low grade fevers overnight. Denies shortness of breath or chest pain. No nausea or vomiting. + flatus. OBJECTIVE: Vital Signs Period Temp Pulse Resp BP Sys/العلي Pulse Ox Last 24 Hr 97.9 F-100.7 F 78-95 10-23 93-142/70-92 95-95 Intake & Output 07/18/18 07/19/18 07/20/18 07/21/18 23:59 23:59 23:59 23:59 Intake Total 3400 3116 1688 Output Total 2100 1735 1480 Balance 1300 1381 208 Weight 95.254 kg 95.254 kg Gen: NAD at rest Heart: RRR Lung: decreased breath sounds at the bases Abd: soft, nontender Ext: no edema Drain with serosanguinous fluid CBC, BMP 07/21/18 05:30 07/21/18 05:30 Active Medications Acetaminophen (Tylenol -) 650 mg PO Q6HPO [facility] Last Admin: 07/21/18 05:45 Dose: 650 mg Chlorhexidine Gluconate (Hibiclens For Decolonization -) 1 applic TP HS [facility] Last Admin: 07/20/18 22:15 Dose: 1 applic Lactated Ringer's (Lactated Ringers Solution) 1,000 mls @ 125 mls/hr IV ASDIR [facility] Last Admin: 07/20/18 20:05 Dose: 125 mls/hr Mupirocin (Bactroban Ointment (For Decolonization) -) 1 applic NS BID [facility] Stop: 07/24/18 21:59 Last Admin: 07/21/18 10:56 Dose: 1 applic Nicotine (Nicoderm Patch -) 14 mg TD DAILY PRN PRN Reason: WITHDRAWAL(CONT SUBST) Ondansetron HCl (Zofran Injection) 4 mg IVPUSH Q6H PRN PRN Reason: NAUSEA AND/OR VOMITING Oxycodone HCl (Roxicodone -) 5 mg PO Q3H PRN PRN Reason: PAIN LEVEL 1-5 Last Admin: 07/21/18 11:29 Dose: 5 mg Oxycodone HCl (Roxicodone -) 10 mg PO Q3H PRN PRN Reason: PAIN LEVEL 6-10 Oxycodone HCl (Oxycontin -) 20 mg PO BID LUCY Stop: 07/24/18 10:47 ASSESSMENT AND PLAN: Lumbar Radiculopathy and Neurogenic Claudication s/p VEENA L4-L5/L3 laminectomy/L3-4 PLIF/Cage placement/Posterior Instrumentation/ Durotomy Repair CAD Smoker - pain control - incentive spirometry - monitor drain output - strict bedrest per surgery - bowel regimen - d/c woo when OOB - PO as tolerated - DVT prophylaxis
[2018-07-21 16:24] LABS: PH,URINE 7.5 (5.0-8.0); URINE APPEARANCE CLEAR; URINE BILIRUBIN NEGATIVE (NEGATIVE); URINE COLOR YELLOW; URINE GLUCOSE (UA) NEGATIVE (NEGATIVE); URINE KETONE NEGATIVE (NEGATIVE); URINE LEUK ESTERASE NEGATIVE (NEGATIVE); URINE NITRITE NEGATIVE (NEGATIVE); URINE PROTEIN NEGATIVE (NEGATIVE); URINE UROBILINOGEN 0.2 mg/dL (0.2-1.0)
--- NOTE | 2018-07-21 19:02 | PN ---
Physical Exam: SUBJECTIVE: Patient seen and examined 24 HR EVENTS: -passing flatus. -no acute events OBJECTIVE: Vital Signs Period Temp Pulse Resp BP Sys/العلي Pulse Ox Last 24 Hr 98.6 F-101.3 F 79-98 10-23 93-167/70-113 95-95 GENERAL: The patient is awake, alert, and fully oriented, in no acute distress. HEAD: Normal with no signs of trauma. EYES: PERRL, extraocular movements intact, sclera anicteric, conjunctiva clear. No ptosis. ENT: nares patent, oropharynx clear without exudates, moist mucous membranes. NECK: Trachea midline, full range of motion, supple. LUNGS: Breath sounds equal, clear to auscultation bilaterally, no wheezes, no crackles, no accessory muscle use. HEART: Regular rate and rhythm, S1, S2 without murmur, rub or gallop. ABDOMEN: Soft, nontender, nondistended, normoactive bowel sounds, no guarding, no rebound, no hepatosplenomegaly, no masses. EXTREMITIES: 2+ pulses, warm, well-perfused, no edema. NEUROLOGICAL: normal sensation in extremties. Normal speech, PSYCH: Normal mood, normal affect. SKIN: Warm, dry, normal turgor, extensive tattoos Laboratory Results - last 24 hr 07/21/18 07/21/18 07/21/18 05:30 05:30 14:45 WBC 8.0 RBC 3.27 L Hgb 11.4 L Hct 33.0 L MCV 100.9 H MCH 34.8 H MCHC 34.5 RDW 13.2 Plt Count 201 D MPV 8.4 Sodium 134 L Potassium 3.6 Chloride 99 Carbon Dioxide 30 Anion Gap 5 L BUN 9 Creatinine 0.7 Creat Clearance w eGFR 114.65 Random Glucose 97 Calcium 8.3 L Phosphorus 2.2 L Magnesium 1.6 L Urine Color Yellow Urine Appearance Clear Urine pH 7.5 D Ur Specific [place] 1.007 L Urine Protein Negative Urine Glucose (UA) Negative Urine Ketones Negative Urine Blood Negative Urine Nitrite Negative Urine Bilirubin Negative Urine Urobilinogen 0.2 Ur Leukocyte Esterase Negative Active Medications Generic Name Dose Route Start Last Admin Trade Name Freq PRN Reason Stop Dose Admin Acetaminophen 650 mg 07/20/18 18:00 07/21/18 17:31 Tylenol - PO 650 mg Q6HPO LUCY Administration Chlorhexidine Gluconate 1 applic 07/19/18 22:00 07/20/18 22:15 Hibiclens For Decolonization - TP 1 applic HS LUCY Administration Lactated Ringer's 1,000 mls @ 125 mls/hr 07/19/18 19:30 07/20/18 20:05 Lactated Ringers Solution IV 125 mls/hr ASDIR LUCY Administration Mupirocin 1 applic 07/19/18 22:00 07/21/18 10:56 Bactroban Ointment (For Decolonization) - NS 07/24/18 21:59 1 applic BID LUCY Administration Nicotine 14 mg 07/20/18 08:36 Nicoderm Patch - TD DAILY PRN WITHDRAWAL(CONT SUBST) Ondansetron HCl 4 mg 07/19/18 19:23 Zofran Injection IVPUSH Q6H PRN NAUSEA AND/OR VOMITING Oxycodone HCl 5 mg 07/21/18 10:46 07/21/18 11:29 Roxicodone - PO 5 mg Q3H PRN Administration PAIN LEVEL 1-5 Oxycodone HCl 10 mg 07/21/18 10:46 07/21/18 17:32 Roxicodone - PO 10 mg Q3H PRN Administration PAIN LEVEL 6-10 Oxycodone HCl 20 mg 07/21/18 11:21 Oxycontin - PO 07/24/18 10:47 BID [facility] ASSESSMENT/PLAN: 63 year old male with history of CAD s/p PCI, tobacco use and LE paresthesias now POD #1 s/p removal of hardware lumbar and fusion, peripheral nerve block with immigration case manager for post op pain control. -Pain management with oxycodone . NO NSAID's. -DVT Prophylaxsis with SCD's and TEDS, oral anticoagulation is contraindicated. -clear liquid diet -nicoderm patch -Monitor drain output: drain strictly to gravity only -LR at 125ml/hr -Incentive spirometry q1H -Tompkins care; d/c when ambulating. -As per Orthopedics he is to avoid bending, lifting (>5 lbs), or twisting for 9- 12 months Code status: Full DISPO: ok to step down to floor in the morning Problem List - Problems (1) Prophylactic measure Code(s): Z29.9 - ENCOUNTER FOR PROPHYLACTIC MEASURES, UNSPECIFIED (2) Tobacco dependence Code(s): F17.200 - NICOTINE DEPENDENCE, UNSPECIFIED, UNCOMPLICATED (3) Back pain Code(s): M54.9 - DORSALGIA, UNSPECIFIED Qualifiers: Back pain location: low back pain Chronicity: chronic Back pain laterality: bilateral Sciatica presence: with sciatica Sciatica laterality: sciatica of right side Qualified Code(s): M54.41 - Lumbago with sciatica, right side; G89.29 - Other chronic pain Visit type - Emergency Visit Emergency Visit: No - New Patient This patient is new to me today: No - Critical Care Critical Care patient: No - Discharge Referral Referred to [facility] Med P.C.: No
[2018-07-21] MEDS: LACTATED RINGERS SOLUTION 1,000 ML IV SCH (20:34)
[2018-07-21] MEDS ORDERED: PT OWN MED DRAWER 7, Y5N ONE (20:41)
[2018-07-21] MEDS: oxyCODONE HCL 10 MG SUSTAINED ACTING TABLET PO SCH (22:36)
[2018-07-21] MEDS: CHLORHEXIDINE GLUCONATE 4% CLEANSER FOR DECOLONIZATION TP SCH (22:36)
[2018-07-22] MEDS: ACETAMINOPHEN 325 MG TABLET (FP) PO SCH ×5 (00:58→19:22)
[2018-07-22] MEDS: oxyCODONE HCL 5 MG TABLET PO PRN ×6 (01:49→21:04)
[2018-07-22 06:24] LABS: HEMATOCRIT 33.2 % (35.4-49); HEMOGLOBIN 11.8 GM/dL (11.7-16.9); MCHC 35.6 g/dl (32.0-35.9); MEAN CELL VOLUME 98.5 fl (80-96); MEAN PLT VOLUME 8.5 fl (7.5-11.1); PLATELET COUNT 193 K/MM3 (134-434); RBC 3.37 M/mm3 (4.00-5.60); RDW 13.2 % (11.9-15.9); WHITE BLOOD COUNT 9.5 K/mm3 (4.0-10.0)
[2018-07-22 06:49] LABS: ANION GAP 6 MMOL/L (8-16); BLOOD UREA NITROGEN 6 mg/dL (7-18); CALCIUM 8.4 mg/dL (8.5-10.1); CHLORIDE 97 mmol/L (98-107); CO2 29 mmol/L (21-32); CREATININE 0.6 mg/dL (0.55-1.3); GLUCOSE,RANDOM 109 mg/dL (74-106); MAGNESIUM 1.6 mg/dL (1.8-2.4); POTASSIUM 3.4 mmol/L (3.5-5.1); SODIUM 132 mmol/L (136-145)
[2018-07-22] MEDS ORDERED: MAGNESIUM SULF 50% (8.12 MEQ/2 ML-1 GM VIAL) IVPB ONE (07:36)
[2018-07-22] MEDS ORDERED: POTASSIUM CHLORIDE TABS 20 MEQ TABLET.ER (FP) PO ONE (07:36)
[2018-07-22] MEDS: DOCUSATE SODIUM 100 MG CAPSULE (FP) PO SCH ×2 (09:04→22:05)
[2018-07-22] MEDS: oxyCODONE HCL 10 MG SUSTAINED ACTING TABLET PO SCH ×2 (09:05→22:04)
--- NOTE | 2018-07-22 11:39 | PN ---
Teaching Attending Note Name of Resident: Gilbert Silverman ATTENDING PHYSICIAN STATEMENT I saw and evaluated the patient. I reviewed the resident's note and discussed the case with the resident. I agree with the resident's findings and plan as documented. SUBJECTIVE: Patient seen and examined in the ICU. Awake and alert. Reports less pain but still 6/10. No CP or SOB. Intake & Output 07/19/18 07/20/18 07/21/18 07/22/18 23:59 23:59 23:59 23:59 Intake Total 3400 3116 3761 1700 Output Total 2100 1735 3840 2500 Balance 1300 1381 -79 -800 Weight 210 lb 210 lb Last Vital Signs Temp Pulse Resp BP Pulse Ox 99.5 F 93 H 16 141/81 93 L 07/22/18 10:00 07/22/18 10:00 07/22/18 10:00 07/22/18 10:00 07/22/18 09:00 Active Medications Acetaminophen (Tylenol -) 650 mg PO Q6HPO [facility] Last Admin: 07/22/18 08:07 Dose: 650 mg Chlorhexidine Gluconate (Hibiclens For Decolonization -) 1 applic TP HS [facility] Last Admin: 07/21/18 22:36 Dose: 1 applic Docusate Sodium (Colace -) 100 mg PO BID [facility] Last Admin: 07/22/18 09:04 Dose: 100 mg Lactated Ringer's (Lactated Ringers Solution) 1,000 mls @ 125 mls/hr IV ASDIR [facility] Last Admin: 07/21/18 20:34 Dose: 125 mls/hr Mupirocin (Bactroban Ointment (For Decolonization) -) 1 applic NS BID [facility] Stop: 07/24/18 21:59 Last Admin: 07/21/18 22:35 Dose: 1 applic Nicotine (Nicoderm Patch -) 14 mg TD DAILY PRN PRN Reason: WITHDRAWAL(CONT SUBST) Ondansetron HCl (Zofran Injection) 4 mg IVPUSH Q6H PRN PRN Reason: NAUSEA AND/OR VOMITING Last Admin: 07/22/18 06:45 Dose: 4 mg Oxycodone HCl (Roxicodone -) 5 mg PO Q3H PRN PRN Reason: PAIN LEVEL 1-5 Last Admin: 07/21/18 11:29 Dose: 5 mg Oxycodone HCl (Roxicodone -) 10 mg PO Q3H PRN PRN Reason: PAIN LEVEL 6-10 Last Admin: 07/22/18 08:02 Dose: 10 mg Oxycodone HCl (Oxycontin -) 20 mg PO BID [facility] Stop: 07/24/18 10:47 Last Admin: 07/22/18 09:05 Dose: 20 mg Senna (Senna -) 2 tab PO HS [facility] GENERAL: Awake, alert, and fully oriented, in no acute distress. HEAD: Normal with no signs of trauma. EYES: sclera anicteric, conjunctiva clear. No lid lag. THROAT: dry mucous membranes. NECK: no JVD, or masses. LUNGS: Breath sounds equal, clear to auscultation bilaterally. No wheezes, and no crackles. No accessory muscle use. HEART: Regular rate and rhythm, normal S1 and S2 without murmur ABDOMEN: Soft, nontender, not distended, normoactive bowel sounds, no guarding, no rebound, no masses. No hepatomegaly or splenomegaly. UPPER EXTREMITIES: 2+ pulses, warm, well-perfused. No cyanosis. No clubbing. Cap refill <2 seconds. No peripheral edema. LOWER EXTREMITIES: 2+ pulses, warm, well-perfused. No calf tenderness. No peripheral edema. NEUROLOGICAL: Normal speech. strength BL UE 5/5 and UE sensation intact; BL LE strength 3/5 bl with decreased sensation of palmar and dorsal feet Laboratory Results - last 24 hr 07/21/18 07/22/18 07/22/18 14:45 05:30 05:30 WBC 9.5 RBC 3.37 L Hgb 11.8 Hct 33.2 L MCV 98.5 H MCH 35.0 H MCHC 35.6 RDW 13.2 Plt Count 193 MPV 8.5 Sodium 132 L Potassium 3.4 L Chloride 97 L Carbon Dioxide 29 Anion Gap 6 L BUN 6 L Creatinine 0.6 Creat Clearance w eGFR 136.97 Random Glucose 109 H Calcium 8.4 L Magnesium 1.6 L Urine Color Yellow Urine Appearance Clear Urine pH 7.5 D Ur Specific [place] 1.007 L Urine Protein Negative Urine Glucose (UA) Negative Urine Ketones Negative Urine Blood Negative Urine Nitrite Negative Urine Bilirubin Negative Urine Urobilinogen 0.2 Ur Leukocyte Esterase Negative ASSESSMENT/PLAN: CAD POD #1: 1. Removal of hardware L4-L5 2. Inspection of fusion mass 3. L3 laminectomy 4. Revision laminectomy L4, L5 5. L3, L4, L5 osteotomies (facetectomies) 6. L3-L4 posterior lumbar interbody fusion with discectomy, and placement of biomechanical device (cage) 7. L3-L4 posterior instrumentation 8. L3-L4 posterolateral arthrodesis with bone allograft & bone autograft 9. Complex wound closure (20cm) Pain control O2 as needed Incentive Spirometry VTE prophylaxis No NSAIDS PO as tolerated Strict drain monitoring D/C Tompkins once OOB Floor Dr Vaz
--- NOTE | 2018-07-22 11:41 | PATH ---
Surgical Pathology Report Patient Name: TIFFANIE DELVALLE Med. Rec. #: [id number] /Age/Gender: 1955 (Age: 63) / M Account: [id number] Location: ICU ELECTRICAL CONTINUITY TESTER Taken: 07/19/2018 Received: 07/20/2018 Reported: 07/22/2018 Physicians: Samir Tuttle M.D. 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 ORTHOPEDIC HARDWARE, LUMBAR, REMOVAL: METALLIC ORTHOPEDIC HARDWARE (GROSS ONLY). B. INTERVERTEBRAL DISC, L3-4, PARTIAL EXCISION: PORTIONS OF INTERVERTEBRAL DISC, AND FRAGMENTS OF BONE. Electronically Signed Aravind Mei M.D. Gross Description A. Received fresh labeled "hardware," is a 7.7 cm greatest dimension metallic clamp-like structure as well as 2 cedeno metallic, bent rods averaging 4.2 cm in length. Also received within the same container are 8 metallic screws ranging from 0.4-6.0 cm in length. No soft tissue is present. No sections are submitted, gross only. B. Received in formalin labeled "disc," is a 4.5 x 2.3 x 0.4 cm aggregate of richter fragments of fibrocartilaginous tissue. A senior patient account representative portion is submitted in one cassette. 07/21/201807/21/2018
--- NOTE | 2018-07-22 14:57 | PN ---
Physical Exam: SUBJECTIVE: Patient seen and examined HD# 4 ICU Day 4 POD 3 Overnight Events: Pt febrile overnight without hypotension or tachycardia. This morning, the pt complaining of pain to surgical site rated 7/10; states baseline is 6/10. Denies chest pain, SOB, or numbness/tingling. Endorses feeling hot and flushed at periods overnight. OBJECTIVE: Vital Signs Period Temp Pulse Resp BP Sys/العلي Pulse Ox Last 24 Hr 99.5 F-101 F 80-96 11-19 121-167/67-98 93-94 Intake & Output 07/21/18 07/22/18 07/22/18 22:59 06:59 14:59 Intake Total 1873 1700 Output Total 960 2500 Balance 913 -800 Intake: IV 1513 1500 Lactated Ringers Solution 1474 1500 1,000 ml @ 125 mls/hr IV ASDIR [facility]UCY Rx#: [id number] DIE CUTTER DIAMOND 39 Oral 360 200 Output: Drainage 60 0 Back 60 0 Urine 900 2500 [place] 900 2500 Other: Voiding Method Indwelling Catheter Urinal Bowel Movement Yes Lines: - PIV Drains: - Tompkins - Wound drain w/ serosanguinous output in container Supplemental Oxygen: None Physical Exams: GENERAL: The patient is awake, alert, and fully oriented, in no acute distress. HEAD: Normal with no signs of trauma. LUNGS: Breath sounds equal, clear to auscultation bilaterally, no wheezes, no crackles, no accessory muscle use. HEART: Regular rate and rhythm, S1, S2 without murmur, rub or gallop. ABDOMEN: Soft, nontender, nondistended. EXTREMITIES: 2+ pulses, warm, well-perfused, no edema. NEUROLOGICAL: Moving all four extremities spontaneously. Vice Provost strength, plantar flexion, and dorsiflexion 5/5 and equal bilaterally. PSYCH: Normal mood, normal affect. SKIN: Warm and dry. Drips: - LR @ 125 Anti Infectives: - None Laboratory Results - last 24 hr 07/21/18 07/22/18 07/22/18 14:45 05:30 05:30 WBC 9.5 RBC 3.37 L Hgb 11.8 Hct 33.2 L MCV 98.5 H MCH 35.0 H MCHC 35.6 RDW 13.2 Plt Count 193 MPV 8.5 Sodium 132 L Potassium 3.4 L Chloride 97 L Carbon Dioxide 29 Anion Gap 6 L BUN 6 L Creatinine 0.6 Creat Clearance w eGFR 136.97 Random Glucose 109 H Calcium 8.4 L Magnesium 1.6 L Urine Color Yellow Urine Appearance Clear Urine pH 7.5 D Ur Specific [place] 1.007 L Urine Protein Negative Urine Glucose (UA) Negative Urine Ketones Negative Urine Blood Negative Urine Nitrite Negative Urine Bilirubin Negative Urine Urobilinogen 0.2 Ur Leukocyte Esterase Negative Active Medications Generic Name Dose Route Start Last Admin Trade Name Jaeq PRN Reason Stop Dose Admin Acetaminophen 650 mg 07/20/18 18:00 07/22/18 13:46 Tylenol - PO 650 mg Q6HPO [facility] Administration Chlorhexidine Gluconate 1 applic 07/19/18 22:00 07/21/18 22:36 Hibiclens For Decolonization - TP 1 applic HS [facility] Administration Docusate Sodium 100 mg 07/22/18 10:00 07/22/18 09:04 Colace - PO 100 mg BID [facility] Administration Lactated Ringer's 1,000 mls @ 125 mls/hr 07/19/18 19:30 07/21/18 20:34 Lactated Ringers Solution IV 125 mls/hr ASDIR [facility] Administration Mupirocin 1 applic 07/19/18 22:00 07/21/18 22:35 Bactroban Ointment (For Decolonization) - NS 07/24/18 21:59 1 applic BID [facility] Administration Nicotine 14 mg 07/20/18 08:36 Nicoderm Patch - TD DAILY PRN WITHDRAWAL(CONT SUBST) Ondansetron HCl 4 mg 07/19/18 19:23 07/22/18 06:45 Zofran Injection IVPUSH 4 mg Q6H PRN Administration NAUSEA AND/OR VOMITING Oxycodone HCl 5 mg 07/21/18 10:46 07/21/18 11:29 Roxicodone - PO 5 mg Q3H PRN Administration PAIN LEVEL 1-5 Oxycodone HCl 10 mg 07/21/18 10:46 07/22/18 14:32 Roxicodone - PO 10 mg Q3H PRN Administration PAIN LEVEL 6-10 Oxycodone HCl 20 mg 07/21/18 11:21 07/22/18 09:05 Oxycontin - PO 07/24/18 10:47 20 mg BID [facility] Administration Senna 2 tab 07/22/18 22:00 Senna - PO HS [facility] ASSESSMENT/PLAN: 63 year old male with history of L4,L5 fusion, CAD s/p stent. S/p: 1. Removal of hardware L4-L5 2. Inspection of fusion mass 3. L3 laminectomy 4. Revision laminectomy L4, L5 5. L3, L4, L5 osteotomies (facetectomies) 6. L3-L4 posterior lumbar interbody fusion with discectomy, and placement of biomechanical device (cage) 7. L3-L4 posterior instrumentation 8. L3-L4 posterolateral arthrodesis with bone allograft & bone autograft 9. Complex wound closure (20cm) Surgery complicated by intraoperative durotomy. Post-op care plan per Dr. Tuttle. Neuro (& Psych): - A/O x4. No sedation drips. - S/p lumbar spinal surgery as detailed above. Nursing nurochecks qShift. - Pain control: Acetaminophen q6h and Oxycodone BID and Oxycodone q3h PRN for breakthrough. No NSAIDS. - Zofran PRN for nausea. - Active smoker. Ordered Nicotine patch PRN. Endocrine: - Hypomagnesemia again this morning. Replenished IV. - Will continue to trend electrolyte. Cardiovascular: - CAD holding antiplatelet therapy given recent surgery Pulm / Resp: - Stable on room air. Denies coughing. - Encouraged IS Genitourinary: - Will D/C Tompkins when OOB today Gastrointestinal: - [place] for post-op constipation Hematologic: - H/H stable this morning. - Drain to gravity. Monitor output. Infectious Disease: - Febrile overnight without hypotension, tachycardia, or leukocytosis. Responsive to Acetaminophen. Sputum and blood cultures obtained; NGTD. Possibly secondary to atelectasis given low grade range and lack of other symptoms. CXR unremarkable for signs of pneumonia yesterday. Will continue to monitor. Musculoskeletal: - No bending, lifting (>5 lbs), or twisting for 9-12 months - PT evaluation ordered for today. Anticipate OOB. FEN: - IVF - Will advance diet to full clear liquid from sips only. Prophylaxis: - DVT: DAYNE's, SCD's. - GI: Not indicated. Dispo: Pt to remain in ICU for further post-op monitoring and neuro checks. Gilbert Silverman MD, PGY1 ICU Consult Service Visit type - Emergency Visit Emergency Visit: No - New Patient This patient is new to me today: No - Critical Care Critical Care patient: Yes Total Critical Care Time (in minutes): 38 Critical Care Statement: The care of this patient involved high complexity decision making to prevent further life threatening deterioration of the patient 's condition and/or to evaluate & treat vital organ system(s) failure or risk of failure.
[2018-07-22] MEDS: MUPIROCIN 2% TOPICAL OINTMENT FOR DECOLONIZATION NS SCH ×2 (15:53→21:08)
[2018-07-22] MEDS: LACTATED RINGERS SOLUTION 1,000 ML IV SCH ×2 (15:56→20:55)
--- NOTE | 2018-07-22 17:25 | PN ---
Progress Note (short form) - Note Progress Note: c/o back pain but is controlled with pain medication. admits to cough but states he is a recent smoker and always cough, no sputum production. did vomit earlier today after trial of liquids but no recurrent nausea or vomiting. denies CP, SOB, fever, chills, N/V/C/D Current Medications Generic Name Dose Route Start Last Admin Trade Name Freq PRN Reason Stop Dose Admin Acetaminophen 650 mg 07/20/18 18:00 07/22/18 13:46 Tylenol - PO 650 mg Q6HPO [facility] Administration Chlorhexidine Gluconate 1 applic 07/19/18 22:00 07/21/18 22:36 Hibiclens For Decolonization - TP 1 applic HS [facility] Administration Docusate Sodium 100 mg 07/22/18 10:00 07/22/18 09:04 Colace - PO 100 mg BID [facility] Administration Lactated Ringer's 1,000 mls @ 125 mls/hr 07/19/18 19:30 07/22/18 15:56 Lactated Ringers Solution IV 125 mls/hr ASDIR [facility] Administration Mupirocin 1 applic 07/19/18 22:00 07/22/18 15:53 Bactroban Ointment (For Decolonization) - NS 07/24/18 21:59 Not Given BID [facility] Nicotine 14 mg 07/20/18 08:36 Nicoderm Patch - TD DAILY PRN WITHDRAWAL(CONT SUBST) Ondansetron HCl 4 mg 07/19/18 19:23 07/22/18 06:45 Zofran Injection IVPUSH 4 mg Q6H PRN Administration NAUSEA AND/OR VOMITING Oxycodone HCl 5 mg 07/21/18 10:46 07/21/18 11:29 Roxicodone - PO 5 mg Q3H PRN Administration PAIN LEVEL 1-5 Oxycodone HCl 10 mg 07/21/18 10:46 07/22/18 14:32 Roxicodone - PO 10 mg Q3H PRN Administration PAIN LEVEL 6-10 Oxycodone HCl 20 mg 07/21/18 11:21 07/22/18 09:05 Oxycontin - PO 07/24/18 10:47 20 mg BID [facility] Administration Senna 2 tab 07/22/18 22:00 Senna - PO HS [facility] Last Vital Signs Temp Pulse Resp BP Pulse Ox 99.7 F H 86 17 122/80 93 L 07/22/18 14:30 07/22/18 14:30 07/22/18 14:30 07/22/18 14:30 07/22/18 09:00 General NAD CV S1 S2 RRR no murmur/rub/gallop lungs CTA no wheezing/rales/rhonchi Abdomen soft NT/ND no suprapubic distention or tenderness Extremities no calf tenderness +drain in place with serosangenous drainage CBCD WBC 9.5 K/mm3 (4.0-10.0) 07/22/18 05:30 RBC 3.37 M/mm3 (4.00-5.60) L 07/22/18 05:30 Hgb 11.8 GM/dL (11.7-16.9) 07/22/18 05:30 Hct 33.2 % (35.4-49) L 07/22/18 05:30 MCV 98.5 fl (80-96) H 07/22/18 05:30 MCHC 35.6 g/dl (32.0-35.9) 07/22/18 05:30 RDW 13.2 % (11.9-15.9) 07/22/18 05:30 Plt Count 193 K/MM3 (134-434) 07/22/18 05:30 MPV 8.5 fl (7.5-11.1) 07/22/18 05:30 CMP Sodium 132 mmol/L (136-145) L 07/22/18 05:30 Potassium 3.4 mmol/L (3.5-5.1) L 07/22/18 05:30 Chloride 97 mmol/L (98-107) L 07/22/18 05:30 Carbon Dioxide 29 mmol/L (21-32) 07/22/18 05:30 Anion Gap 6 MMOL/L (8-16) L 07/22/18 05:30 BUN 6 mg/dL (7-18) L 07/22/18 05:30 Creatinine 0.6 mg/dL (0.55-1.3) 07/22/18 05:30 Creat Clearance w eGFR 136.97 (>60) 07/22/18 05:30 Calcium 8.4 mg/dL (8.5-10.1) L 07/22/18 05:30 assessment and plan 63 year old male with history of CAD with 1 stent and tobacco use who presented for scheduled hardware removal and revision surgery 1. Neurogenic claudication with radiculopathy- s/p:1. Removal of hardware L4-L5 2. Inspection of fusion mass 3. L3 laminectomy 4. Revision laminectomy L4, L5 5. L3, L4, L5 osteotomies (facetectomies) 6. L3-L4 posterior lumbar interbody fusion with discectomy, and placement of biomechanical device (cage) 7. L3-L4 posterior instrumentation 8. L3-L4 posterolateral arthrodesis with bone allograft & bone autograft 9. Complex wound closure (20cm)on 07/19/18. durotomy repair done at that time. drain in place. cont pain control and further recommendations per ortho 2. Fever- Tm 101. no suspected source from sepsis workup done yesterday. could be just post-operative fever. will monitor if persists will need to consider non -infectious causes although is early for that to manifest. incentive inhaler. hold abx 3. Vomiting- liekly due to opiates. now on clears. will cont for now. cont IVF hydration. antiemetics as needed 4. continuous nicotine dependence- nicotine patch. interested in quitting. handout to be given on discharge 5. hypokalemia- due to vomiting. will replace in IVF 6. hypomagnesemia- Mg 2g 7. DVT ppx- SCD. no pharmacologic in light of recent surgery 8. stable for transfer to floors Visit type - Emergency Visit Emergency Visit: No - New Patient This patient is new to me today: Yes Date on this admission: 07/22/18 - Critical Care Critical Care patient: Yes Total Critical Care Time (in minutes): 40 Critical Care Statement: The care of this patient involved high complexity decision making to prevent further life threatening deterioration of the patient 's condition and/or to evaluate & treat vital organ system(s) failure or risk of failure. - Discharge Referral Referred to [facility] No
[2018-07-22] MEDS ORDERED: SODIUM CHLORIDE 1,000 ML IV STA (18:11)
[2018-07-22] MEDS: SENNOSIDES 8.6MG TABLET (FP) PO SCH (21:03)
[2018-07-22] MEDS: CHLORHEXIDINE GLUCONATE 4% CLEANSER FOR DECOLONIZATION TP SCH (22:05)
[2018-07-23] MEDS: ACETAMINOPHEN 325 MG TABLET (FP) PO SCH ×4 (00:27→18:03)
[2018-07-23] MEDS: oxyCODONE HCL 5 MG TABLET PO PRN ×8 (00:28→19:35)
[2018-07-23] MEDS: LACTATED RINGERS SOLUTION 1,000 ML IV SCH ×2 (06:12→14:44)
[2018-07-23 06:42] LABS: HEMATOCRIT 30.1 % (35.4-49); HEMOGLOBIN 10.5 GM/dL (11.7-16.9); MCH 34.8 pg (25.7-33.7); MCHC 34.8 g/dl (32.0-35.9); MEAN PLT VOLUME 8.4 fl (7.5-11.1); PLATELET COUNT 186 K/MM3 (134-434); RBC 3.01 M/mm3 (4.00-5.60); RDW 13.2 % (11.9-15.9); WHITE BLOOD COUNT 8.7 K/mm3 (4.0-10.0)
[2018-07-23 06:58] LABS: ANION GAP 5 MMOL/L (8-16); BLOOD UREA NITROGEN 8 mg/dL (7-18); CALCIUM 8.4 mg/dL (8.5-10.1); CHLORIDE 102 mmol/L (98-107); CO2 30 mmol/L (21-32); CREATININE 0.7 mg/dL (0.55-1.3); GLUCOSE,RANDOM 109 mg/dL (74-106); PHOSPHOROUS 2.5 mg/dL (2.5-4.9); POTASSIUM 3.7 mmol/L (3.5-5.1); SODIUM 137 mmol/L (136-145)
[2018-07-23] MEDS: oxyCODONE HCL 10 MG SUSTAINED ACTING TABLET PO SCH ×2 (09:47→22:13)
[2018-07-23] MEDS: DOCUSATE SODIUM 100 MG CAPSULE (FP) PO SCH ×2 (09:47→22:14)
--- NOTE | 2018-07-23 10:59 | PN ---
Teaching Attending Note Name of Resident: Gilbert Silverman ATTENDING PHYSICIAN STATEMENT I saw and evaluated the patient. I reviewed the resident's note and discussed the case with the resident. I agree with the resident's findings and plan as documented. SUBJECTIVE: Patient seen and examined in the ICU. Awake and alert. Less pain but still about 5/10. No CP or SOB. Intake & Output 07/20/18 07/21/18 07/22/18 07/23/18 23:59 23:59 23:59 23:59 Intake Total 3116 3761 4720 1500 Output Total 1735 3840 2930 430 Balance 1381 -79 1790 1070 Weight 210 lb Last Vital Signs Temp Pulse Resp BP Pulse Ox 98.1 F 69 17 125/76 93 L 07/23/18 06:00 07/23/18 08:00 07/23/18 08:00 07/23/18 08:00 07/23/18 07:30 Active Medications Acetaminophen (Tylenol -) 650 mg PO Q6HPO [facility] Last Admin: 07/23/18 06:12 Dose: 650 mg Chlorhexidine Gluconate (Hibiclens For Decolonization -) 1 applic TP HS [facility] Last Admin: 07/22/18 22:05 Dose: 1 applic Docusate Sodium (Colace -) 100 mg PO BID [facility] Last Admin: 07/23/18 09:47 Dose: 100 mg Lactated Ringer's (Lactated Ringers Solution) 1,000 mls @ 125 mls/hr IV ASDIR [facility] Last Admin: 07/23/18 06:12 Dose: 125 mls/hr Mupirocin (Bactroban Ointment (For Decolonization) -) 1 applic NS BID [facility] Stop: 07/24/18 21:59 Last Admin: 07/22/18 21:08 Dose: Not Given Nicotine (Nicoderm Patch -) 14 mg TD DAILY PRN PRN Reason: WITHDRAWAL(CONT SUBST) Ondansetron HCl (Zofran Injection) 4 mg IVPUSH Q6H PRN PRN Reason: NAUSEA AND/OR VOMITING Last Admin: 07/22/18 06:45 Dose: 4 mg Oxycodone HCl (Roxicodone -) 5 mg PO Q3H PRN PRN Reason: PAIN LEVEL 1-5 Last Admin: 07/23/18 08:28 Dose: 5 mg Oxycodone HCl (Roxicodone -) 10 mg PO Q3H PRN PRN Reason: PAIN LEVEL 6-10 Last Admin: 07/23/18 06:13 Dose: 10 mg Oxycodone HCl (Oxycontin -) 20 mg PO BID [facility] Stop: 07/24/18 10:47 Last Admin: 07/23/18 09:47 Dose: 20 mg Senna (Senna -) 2 tab PO HS [facility] Last Admin: 07/22/18 21:03 Dose: 2 tab GENERAL: Awake, alert, and fully oriented, in no acute distress. HEAD: Normal with no signs of trauma. EYES: sclera anicteric, conjunctiva clear. No lid lag. THROAT: dry mucous membranes. NECK: no JVD, or masses. LUNGS: Breath sounds equal, clear to auscultation bilaterally. No wheezes, and no crackles. No accessory muscle use. HEART: Regular rate and rhythm, normal S1 and S2 without murmur ABDOMEN: Soft, nontender, not distended, normoactive bowel sounds, no guarding, no rebound, no masses. No hepatomegaly or splenomegaly. UPPER EXTREMITIES: 2+ pulses, warm, well-perfused. No cyanosis. No clubbing. Cap refill <2 seconds. No peripheral edema. LOWER EXTREMITIES: 2+ pulses, warm, well-perfused. No calf tenderness. No peripheral edema. NEUROLOGICAL: Normal speech. strength BL UE 5/5 and UE sensation intact; BL LE strength 3/5 bl with decreased sensation of palmar and dorsal feet Laboratory Results - last 24 hr 07/23/18 07/23/18 05:30 05:30 WBC 8.7 RBC 3.01 L Hgb 10.5 L Hct 30.1 L MCV 100.0 H MCH 34.8 H MCHC 34.8 RDW 13.2 Plt Count 186 MPV 8.4 Sodium 137 Potassium 3.7 Chloride 102 Carbon Dioxide 30 Anion Gap 5 L BUN 8 Creatinine 0.7 Creat Clearance w eGFR 114.65 Random Glucose 109 H Calcium 8.4 L Phosphorus 2.5 Magnesium 2.0 ASSESSMENT/PLAN: CAD POD #4: 1. Removal of hardware L4-L5 2. Inspection of fusion mass 3. L3 laminectomy 4. Revision laminectomy L4, L5 5. L3, L4, L5 osteotomies (facetectomies) 6. L3-L4 posterior lumbar interbody fusion with discectomy, and placement of biomechanical device (cage) 7. L3-L4 posterior instrumentation 8. L3-L4 posterolateral arthrodesis with bone allograft & bone autograft 9. Complex wound closure (20cm) Pain control O2 as needed Incentive Spirometry VTE prophylaxis No NSAIDS PO as tolerated Strict drain monitoring Floor Dr Vaz
[2018-07-23] MEDS: MUPIROCIN 2% TOPICAL OINTMENT FOR DECOLONIZATION NS SCH ×2 (12:31→22:14)
--- NOTE | 2018-07-23 12:47 | PN ---
Progress Note (short form) - Note Progress Note: c/o back pain but is controlled with pain medication. admits to cough but states he is a recent smoker and always cough, no sputum production. did vomit earlier today after trial of liquids but no recurrent nausea or vomiting. denies CP, SOB, fever, chills, N/V/C/D Current Medications Generic Name Dose Route Start Last Admin Trade Name Freq PRN Reason Stop Dose Admin Acetaminophen 650 mg 07/20/18 18:00 07/23/18 12:23 Tylenol - PO 650 mg Q6HPO [facility]UCY Administration Chlorhexidine Gluconate 1 applic 07/19/18 22:00 07/22/18 22:05 Hibiclens For Decolonization - TP 1 applic HS [facility]UCY Administration Docusate Sodium 100 mg 07/22/18 10:00 07/23/18 09:47 Colace - PO 100 mg BID [facility] Administration Lactated Ringer's 1,000 mls @ 125 mls/hr 07/19/18 19:30 07/23/18 06:12 Lactated Ringers Solution IV 125 mls/hr ASDIR [facility] Administration Mupirocin 1 applic 07/19/18 22:00 07/23/18 12:31 Bactroban Ointment (For Decolonization) - NS 07/24/18 21:59 1 applic BID [facility] Administration Nicotine 14 mg 07/20/18 08:36 Nicoderm Patch - TD DAILY PRN WITHDRAWAL(CONT SUBST) Ondansetron HCl 4 mg 07/19/18 19:23 07/22/18 06:45 Zofran Injection IVPUSH 4 mg Q6H PRN Administration NAUSEA AND/OR VOMITING Oxycodone HCl 5 mg 07/21/18 10:46 07/23/18 08:28 Roxicodone - PO 5 mg Q3H PRN Administration PAIN LEVEL 1-5 Oxycodone HCl 10 mg 07/21/18 10:46 07/23/18 12:25 Roxicodone - PO 10 mg Q3H PRN Administration PAIN LEVEL 6-10 Oxycodone HCl 20 mg 07/21/18 11:21 07/23/18 09:47 Oxycontin - PO 07/24/18 10:47 20 mg BID LUCY Administration Senna 2 tab 07/22/18 22:00 07/22/18 21:03 Senna - PO 2 tab HS [facility] Administration Last Vital Signs Temp Pulse Resp BP Pulse Ox 98.1 F 79 20 118/84 93 L 07/23/18 06:00 07/23/18 12:00 07/23/18 12:00 07/23/18 12:00 07/23/18 07:30 General NAD CV S1 S2 RRR no murmur/rub/gallop lungs CTA no wheezing/rales/rhonchi Abdomen soft NT/ND no suprapubic distention or tenderness Extremities no calf tenderness +drain in place with serosangenous drainage assessment and plan 63 year old male with history of CAD with 1 stent and tobacco use who presented for scheduled hardware removal and revision surgery 1. Neurogenic claudication with radiculopathy- s/p:1. Removal of hardware L4-L5 2. Inspection of fusion mass 3. L3 laminectomy 4. Revision laminectomy L4, L5 5. L3, L4, L5 osteotomies (facetectomies) 6. L3-L4 posterior lumbar interbody fusion with discectomy, and placement of biomechanical device (cage) 7. L3-L4 posterior instrumentation 8. L3-L4 posterolateral arthrodesis with bone allograft & bone autograft 9. Complex wound closure (20cm)on 07/19/18. durotomy repair done at that time. drain in place. cont pain control and further recommendations per ortho 2. Fever- Tm 101. no suspected source from sepsis workup done yesterday. could be just post-operative fever. will monitor if persists will need to consider non -infectious causes although is early for that to manifest. incentive inhaler. hold abx 3. Vomiting- liekly due to opiates. now on clears. will cont for now. cont IVF hydration. antiemetics as needed 4. continuous nicotine dependence- nicotine patch. interested in quitting. handout to be given on discharge 5. hypokalemia- due to vomiting. will replace in IVF 6. hypomagnesemia- Mg 2g 7. DVT ppx- SCD. no pharmacologic in light of recent surgery 8. stable for transfer to floors
--- NOTE | 2018-07-23 13:26 | PN ---
Physical Exam: SUBJECTIVE: Patient seen and examined HD# 5 ICU Day 5 POD 4 Overnight Events: No acute events reported overnight. Pt afebrile. Endorses pain at post-op site at tolerable level. Denies chest pain, SOB, and numbness/tingling. Was OOB yesterday with pt. Reportedly walked down length of hallway with PT. Passing flatus but no BM. Requests more to eat than just water stuff. OBJECTIVE: Vital Signs Period Temp Pulse Resp BP Sys/العلي Pulse Ox Last 24 Hr 98.1 F-100.2 F 66-88 14-20 97-139/65-86 93-93 Intake & Output 07/22/18 07/23/18 07/23/18 22:59 06:59 14:59 Intake Total 3020 1500 Output Total 430 430 800 Balance 2590 1070 -800 Intake: IV 2500 1500 Lactated Ringers Solution 1500 1500 1,000 ml @ 125 mls/hr IV ASDIR LUCY Rx#: [id number] Normal Saline - 1,000 ml 1000 @ 1000 mls/hr IV ASDIR STA Rx#:[id number] IVPB 100 Oral 420 Output: Drainage 30 30 Back 30 30 Urine 400 400 800 Void 400 400 800 Other: Voiding Method Urinal Urinal Bowel Movement No No Lines: - PIV Drains: - Wound drain w/ serosanguinous output in container Supplemental Oxygen: None Physical Exams: GENERAL: The patient is awake, alert, and fully oriented, in no acute distress. HEAD: Normal with no signs of trauma. LUNGS: Breath sounds equal, clear to auscultation bilaterally, no wheezes, no crackles, no accessory muscle use. HEART: Regular rate and rhythm, S1, S2 without murmur, rub or gallop. ABDOMEN: Soft, nontender, nondistended. BACK: Post-op surgical dressings in place; appear clean, dry, and intact. Wound drain site clean and well appearing. EXTREMITIES: 2+ pulses, warm, well-perfused, no edema. NEUROLOGICAL: Moving all four extremities spontaneously. Avionics Systems Technician strength, plantar flexion, and dorsiflexion 5/5 and equal bilaterally. PSYCH: Normal mood, normal affect. SKIN: Warm and dry. Drips: - LR @ 125 Anti Infectives: - None Laboratory Results - last 24 hr 07/23/18 07/23/18 05:30 05:30 WBC 8.7 RBC 3.01 L Hgb 10.5 L Hct 30.1 L MCV 100.0 H MCH 34.8 H MCHC 34.8 RDW 13.2 Plt Count 186 MPV 8.4 Sodium 137 Potassium 3.7 Chloride 102 Carbon Dioxide 30 Anion Gap 5 L BUN 8 Creatinine 0.7 Creat Clearance w eGFR 114.65 Random Glucose 109 H Calcium 8.4 L Phosphorus 2.5 Magnesium 2.0 Active Medications Generic Name Dose Route Start Last Admin Trade Name Freq PRN Reason Stop Dose Admin Acetaminophen 650 mg 07/20/18 18:00 07/23/18 12:23 Tylenol - PO 650 mg Q6HPO LUCY Administration Chlorhexidine Gluconate 1 applic 07/19/18 22:00 07/22/18 22:05 Hibiclens For Decolonization - TP 1 applic HS LUCY Administration Docusate Sodium 100 mg 07/22/18 10:00 07/23/18 09:47 Colace - PO 100 mg BID LUCY Administration Lactated Ringer's 1,000 mls @ 125 mls/hr 07/19/18 19:30 07/23/18 06:12 Lactated Ringers Solution IV 07/23/18 15:00 125 mls/hr ASDIR LUCY Administration Mupirocin 1 applic 07/19/18 22:00 07/23/18 12:31 Bactroban Ointment (For Decolonization) - NS 07/24/18 21:59 1 applic BID LUCY Administration Nicotine 14 mg 07/20/18 08:36 Nicoderm Patch - TD DAILY PRN WITHDRAWAL(CONT SUBST) Ondansetron HCl 4 mg 07/19/18 19:23 07/22/18 06:45 Zofran Injection IVPUSH 4 mg Q6H PRN Administration NAUSEA AND/OR VOMITING Oxycodone HCl 5 mg 07/21/18 10:46 07/23/18 08:28 Roxicodone - PO 5 mg Q3H PRN Administration PAIN LEVEL 1-5 Oxycodone HCl 10 mg 07/21/18 10:46 07/23/18 12:25 Roxicodone - PO 10 mg Q3H PRN Administration PAIN LEVEL 6-10 Oxycodone HCl 20 mg 07/21/18 11:21 07/23/18 09:47 Oxycontin - PO 07/24/18 10:47 20 mg BID LUCY Administration Senna 2 tab 07/22/18 22:00 07/22/18 21:03 Senna - PO 2 tab HS LUCY Administration ASSESSMENT/PLAN: 63 year old male with history of L4,L5 fusion, CAD s/p stent. S/p: 1. Removal of hardware L4-L5 2. Inspection of fusion mass 3. L3 laminectomy 4. Revision laminectomy L4, L5 5. L3, L4, L5 osteotomies (facetectomies) 6. L3-L4 posterior lumbar interbody fusion with discectomy, and placement of biomechanical device (cage) 7. L3-L4 posterior instrumentation 8. L3-L4 posterolateral arthrodesis with bone allograft & bone autograft 9. Complex wound closure (20cm) Surgery complicated by intraoperative durotomy. Post-op care plan per Dr. Tuttle. Discussed care via telephone this morning. Neuro (& Psych): - A/O x4. No sedation drips. - S/p lumbar spinal surgery as detailed above. Nursing nurochecks qShift. - Pain control: Acetaminophen q6h and Oxycodone BID and Oxycodone q3h PRN for breakthrough. No NSAIDS. - Zofran PRN for nausea. - Active smoker. Nicotine patch PRN. Endocrine: - Will continue to trend electrolyte. Cardiovascular: - CAD holding antiplatelet therapy given recent surgery Pulm / Resp: - Stable on room air. Denies coughing. - Encouraged IS Gastrointestinal: - [place] for post-op constipation. Passing flatus. Hematologic: - H/H stable this morning. - Drain to gravity. Continue to monitor output. Infectious Disease: - Afebrile overnight. No tachycardia or hypotension. No leukocytosis. Low suspicion for infectious process. Musculoskeletal: - No bending, lifting (>5 lbs), or twisting for 9-12 months - Encourage PT and OOB FEN: - IVF, will discontinue this afternoon if pt tolerates advancing to soft diet without vomiting. Prophylaxis: - DVT: DAYNE's, SCD's. - GI: Not indicated. Dispo: Pt stable for care to be de-escalated to med/surg for further post-op recovery. Gilbert Silverman MD, PGY1 ICU Consult Service Visit type - Emergency Visit Emergency Visit: No - New Patient This patient is new to me today: No - Critical Care Critical Care patient: Yes Total Critical Care Time (in minutes): 37 Critical Care Statement: The care of this patient involved high complexity decision making to prevent further life threatening deterioration of the patient 's condition and/or to evaluate & treat vital organ system(s) failure or risk of failure.
--- NOTE | 2018-07-23 14:02 | PN ---
Progress Note (short form) - Note Progress Note: asymptomatic. denies CP, SOB, fever, chills, N/V/C/D Current Medications Generic Name Dose Route Start Last Admin Trade Name Freq PRN Reason Stop Dose Admin Acetaminophen 650 mg 07/20/18 18:00 07/23/18 12:23 Tylenol - PO 650 mg Q6HPO LUCY Administration Chlorhexidine Gluconate 1 applic 07/19/18 22:00 07/22/18 22:05 Hibiclens For Decolonization - TP 1 applic HS LUCY Administration Docusate Sodium 100 mg 07/22/18 10:00 07/23/18 09:47 Colace - PO 100 mg BID LUCY Administration Lactated Ringer's 1,000 mls @ 125 mls/hr 07/19/18 19:30 07/23/18 06:12 Lactated Ringers Solution IV 07/23/18 15:00 125 mls/hr ASDIR LUCY Administration Mupirocin 1 applic 07/19/18 22:00 07/23/18 12:31 Bactroban Ointment (For Decolonization) - NS 07/24/18 21:59 1 applic BID LUCY Administration Nicotine 14 mg 07/20/18 08:36 Nicoderm Patch - TD DAILY PRN WITHDRAWAL(CONT SUBST) Ondansetron HCl 4 mg 07/19/18 19:23 07/22/18 06:45 Zofran Injection IVPUSH 4 mg Q6H PRN Administration NAUSEA AND/OR VOMITING Oxycodone HCl 5 mg 07/21/18 10:46 07/23/18 08:28 Roxicodone - PO 5 mg Q3H PRN Administration PAIN LEVEL 1-5 Oxycodone HCl 10 mg 07/21/18 10:46 07/23/18 12:25 Roxicodone - PO 10 mg Q3H PRN Administration PAIN LEVEL 6-10 Oxycodone HCl 20 mg 07/21/18 11:21 07/23/18 09:47 Oxycontin - PO 07/24/18 10:47 20 mg BID LUCY Administration Senna 2 tab 07/22/18 22:00 07/22/18 21:03 Senna - PO 2 tab HS LUCY Administration Last Vital Signs Temp Pulse Resp BP Pulse Ox 98.1 F 79 20 118/84 93 L 07/23/18 06:00 07/23/18 12:00 07/23/18 12:00 07/23/18 12:00 07/23/18 07:30 General NAD CV S1 S2 RRR no murmur/rub/gallop lungs CTA no wheezing/rales/rhonchi Abdomen soft NT/ND no suprapubic distention or tenderness Extremities no calf tenderness +drain in place with serosangenous drainage CBCD WBC 8.7 K/mm3 (4.0-10.0) 07/23/18 05:30 RBC 3.01 M/mm3 (4.00-5.60) L 07/23/18 05:30 Hgb 10.5 GM/dL (11.7-16.9) L 07/23/18 05:30 Hct 30.1 % (35.4-49) L 07/23/18 05:30 MCV 100.0 fl (80-96) H 07/23/18 05:30 MCHC 34.8 g/dl (32.0-35.9) 07/23/18 05:30 RDW 13.2 % (11.9-15.9) 07/23/18 05:30 Plt Count 186 K/MM3 (134-434) 07/23/18 05:30 MPV 8.4 fl (7.5-11.1) 07/23/18 05:30 CMP Sodium 137 mmol/L (136-145) 07/23/18 05:30 Potassium 3.7 mmol/L (3.5-5.1) 07/23/18 05:30 Chloride 102 mmol/L (98-107) 07/23/18 05:30 Carbon Dioxide 30 mmol/L (21-32) 07/23/18 05:30 Anion Gap 5 MMOL/L (8-16) L 07/23/18 05:30 BUN 8 mg/dL (7-18) 07/23/18 05:30 Creatinine 0.7 mg/dL (0.55-1.3) 07/23/18 05:30 Creat Clearance w eGFR 114.65 (>60) 07/23/18 05:30 Calcium 8.4 mg/dL (8.5-10.1) L 07/23/18 05:30 assessment and plan 63 year old male with history of CAD with 1 stent and tobacco use who presented for scheduled hardware removal and revision surgery 1. Neurogenic claudication with radiculopathy- s/p:1. Removal of hardware L4-L5 2. Inspection of fusion mass 3. L3 laminectomy 4. Revision laminectomy L4, L5 5. L3, L4, L5 osteotomies (facetectomies) 6. L3-L4 posterior lumbar interbody fusion with discectomy, and placement of biomechanical device (cage) 7. L3-L4 posterior instrumentation 8. L3-L4 posterolateral arthrodesis with bone allograft & bone autograft 9. Complex wound closure (20cm)on 07/19/18. durotomy repair done at that time. drain in place. cont pain control and further recommendations per ortho 2. Fever- Tm 100.1. sepsis workup sent last night. will hold abx at this time. 3. Vomiting- liekly due to opiates. no repeat episodes. tolerating diet. 4. continuous nicotine dependence- nicotine patch. interested in quitting. handout to be given on discharge 5. hypokalemia- due to vomiting. resolved 6. hypomagnesemia- resolved 7. DVT ppx- SCD. no pharmacologic in light of recent surgery 8. stable for transfer to floors Visit type - Emergency Visit Emergency Visit: Yes ED Registration Date: 07/19/18 Care time: The patient presented to the Emergency Department on the above date and was hospitalized for further evaluation of their emergent condition. - New Patient This patient is new to me today: No - Critical Care Critical Care patient: Yes Total Critical Care Time (in minutes): 38 Critical Care Statement: The care of this patient involved high complexity decision making to prevent further life threatening deterioration of the patient 's condition and/or to evaluate & treat vital organ system(s) failure or risk of failure. - Discharge Referral Referred to [facility] Med P.C.: No
[2018-07-23] MEDS: SENNOSIDES 8.6MG TABLET (FP) PO SCH (22:14)
[2018-07-23] MEDS: CHLORHEXIDINE GLUCONATE 4% CLEANSER FOR DECOLONIZATION TP SCH (22:14)
[2018-07-24] MEDS: ACETAMINOPHEN 325 MG TABLET (FP) PO SCH ×4 (00:25→17:37)
[2018-07-24] MEDS: oxyCODONE HCL 5 MG TABLET PO PRN ×7 (01:45→20:29)
[2018-07-24 06:51] LABS: ANION GAP 5 MMOL/L (8-16); BLOOD UREA NITROGEN 8 mg/dL (7-18); CALCIUM 8.4 mg/dL (8.5-10.1); CHLORIDE 102 mmol/L (98-107); CO2 28 mmol/L (21-32); CREATININE 0.6 mg/dL (0.55-1.3); GLUCOSE,RANDOM 92 mg/dL (74-106); MAGNESIUM 1.6 mg/dL (1.8-2.4); PHOSPHOROUS 3.2 mg/dL (2.5-4.9); POTASSIUM 3.8 mmol/L (3.5-5.1); SODIUM 135 mmol/L (136-145)
[2018-07-24] MEDS ORDERED: MAGNESIUM SULF 50% (8.12 MEQ/2 ML-1 GM VIAL) IVPB ONE (08:00)
[2018-07-24] MEDS: oxyCODONE HCL 10 MG SUSTAINED ACTING TABLET PO SCH (09:01)
[2018-07-24] MEDS: DOCUSATE SODIUM 100 MG CAPSULE (FP) PO SCH ×2 (09:02→21:08)
--- NOTE | 2018-07-24 09:56 | PN ---
Teaching Attending Note Name of Resident: Gilbert Silverman ATTENDING PHYSICIAN STATEMENT I saw and evaluated the patient. I reviewed the resident's note and discussed the case with the resident. I agree with the resident's findings and plan as documented. SUBJECTIVE: Patient seen and examined in the ICU. Awake and alert. Less pain but still about 4/10. No CP or SOB. Intake & Output 07/21/18 07/22/18 07/23/18 07/24/18 23:59 23:59 23:59 23:59 Intake Total 3761 4720 2000 Output Total 3840 2930 1230 5 Balance -79 1790 770 -5 Weight 210 lb Last Vital Signs Temp Pulse Resp BP Pulse Ox 98.3 F 61 15 134/80 93 L 07/24/18 06:00 07/24/18 07:19 07/24/18 07:19 07/24/18 07:19 07/24/18 07:19 Active Medications Acetaminophen (Tylenol -) 650 mg PO Q6HPO [facility] [place] Last Admin: 07/24/18 05:34 Dose: 650 mg Chlorhexidine Gluconate (Hibiclens For Decolonization -) 1 applic TP HS [facility] Last Admin: 07/23/18 22:14 Dose: 1 applic Docusate Sodium (Colace -) 100 mg PO BID [facility] [place] Last Admin: 07/24/18 09:02 Dose: 100 mg Mupirocin (Bactroban Ointment (For Decolonization) -) 1 applic NS BID [facility] [place] Stop: 07/24/18 21:59 Last Admin: 07/23/18 22:14 Dose: Not Given Nicotine (Nicoderm Patch -) 14 mg TD DAILY PRN PRN Reason: WITHDRAWAL(CONT SUBST) Ondansetron HCl (Zofran Injection) 4 mg IVPUSH Q6H PRN PRN Reason: NAUSEA AND/OR VOMITING Last Admin: 07/22/18 06:45 Dose: 4 mg Oxycodone HCl (Roxicodone -) 5 mg PO Q3H PRN PRN Reason: PAIN LEVEL 1-5 Last Admin: 07/23/18 14:43 Dose: 5 mg Oxycodone HCl (Roxicodone -) 10 mg PO Q3H PRN PRN Reason: PAIN LEVEL 6-10 Last Admin: 07/24/18 09:00 Dose: 10 mg Oxycodone HCl (Oxycontin -) 20 mg PO BID [facility] [place] Stop: 07/24/18 10:47 Last Admin: 07/24/18 09:01 Dose: 20 mg Senna (Senna -) 2 tab PO [facility] Last Admin: 07/23/18 22:14 Dose: 2 tab GENERAL: Awake, alert, and fully oriented, in no acute distress. HEAD: Normal with no signs of trauma. EYES: sclera anicteric, conjunctiva clear. No lid lag. THROAT: dry mucous membranes. NECK: no JVD, or masses. LUNGS: Breath sounds equal, clear to auscultation bilaterally. No wheezes, and no crackles. No accessory muscle use. HEART: Regular rate and rhythm, normal S1 and S2 without murmur ABDOMEN: Soft, nontender, not distended, normoactive bowel sounds, no guarding, no rebound, no masses. No hepatomegaly or splenomegaly. UPPER EXTREMITIES: 2+ pulses, warm, well-perfused. No cyanosis. No clubbing. Cap refill <2 seconds. No peripheral edema. LOWER EXTREMITIES: 2+ pulses, warm, well-perfused. No calf tenderness. No peripheral edema. NEUROLOGICAL: Normal speech. strength BL UE 5/5 and UE sensation intact; BL LE strength 3/5 bl with decreased sensation of palmar and dorsal feet Laboratory Results - last 24 hr 07/24/18 05:30 Sodium 135 L Potassium 3.8 Chloride 102 Carbon Dioxide 28 Anion Gap 5 L BUN 8 Creatinine 0.6 Creat Clearance w eGFR 136.97 Random Glucose 92 Calcium 8.4 L Phosphorus 3.2 Magnesium 1.6 L ASSESSMENT/PLAN: CAD POD #5: 1. Removal of hardware L4-L5 2. Inspection of fusion mass 3. L3 laminectomy 4. Revision laminectomy L4, L5 5. L3, L4, L5 osteotomies (facetectomies) 6. L3-L4 posterior lumbar interbody fusion with discectomy, and placement of biomechanical device (cage) 7. L3-L4 posterior instrumentation 8. L3-L4 posterolateral arthrodesis with bone allograft & bone autograft 9. Complex wound closure (20cm) Pain control O2 as needed Incentive Spirometry VTE prophylaxis No NSAIDS PO as tolerated For possible drain removal today Floor Dr Vaz
[2018-07-24] MEDS: MUPIROCIN 2% TOPICAL OINTMENT FOR DECOLONIZATION NS SCH (10:42)
[2018-07-24] MEDS ORDERED: oxyCODONE HCL 5 MG TABLET PO PRN ×2 (11:06→20:30)
--- NOTE | 2018-07-24 11:36 | PN ---
Physical Exam: SUBJECTIVE: Patient seen and examined OBJECTIVE: Vital Signs Period Temp Pulse Resp BP Sys/العلي Pulse Ox Last 24 Hr 98.2 F-99 F 61-91 15-20 110-154/58-94 93-93 General NAD CV S1 S2 RRR no murmur/rub/gallop lungs CTA no wheezing/rales/rhonchi Abdomen soft NT/ND no suprapubic distention or tenderness Extremities no calf tenderness +drain in place with serosangenous drainage Laboratory Results - last 24 hr 07/24/18 05:30 Sodium 135 L Potassium 3.8 Chloride 102 Carbon Dioxide 28 Anion Gap 5 L BUN 8 Creatinine 0.6 Creat Clearance w eGFR 136.97 Random Glucose 92 Calcium 8.4 L Phosphorus 3.2 Magnesium 1.6 L Active Medications Generic Name Dose Route Start Last Admin Trade Name Freq PRN Reason Stop Dose Admin Acetaminophen 650 mg 07/20/18 18:00 07/24/18 05:34 Tylenol - PO 650 mg Q6HPO LUCY Administration Chlorhexidine Gluconate 1 applic 07/19/18 22:00 07/23/18 22:14 Hibiclens For Decolonization - TP 1 applic HS LUCY Administration Docusate Sodium 100 mg 07/22/18 10:00 07/24/18 09:02 Colace - PO 100 mg BID LUCY Administration Mupirocin 1 applic 07/19/18 22:00 07/24/18 10:42 Bactroban Ointment (For Decolonization) - NS 07/24/18 21:59 1 applic BID LUCY Administration Nicotine 14 mg 07/20/18 08:36 Nicoderm Patch - TD DAILY PRN WITHDRAWAL(CONT SUBST) Ondansetron HCl 4 mg 07/19/18 19:23 07/22/18 06:45 Zofran Injection IVPUSH 4 mg Q6H PRN Administration NAUSEA AND/OR VOMITING Oxycodone HCl 10 mg 07/24/18 11:06 Roxicodone - PO Q3H PRN PAIN LEVEL 7 - 10 Oxycodone HCl 5 mg 07/24/18 11:21 Roxicodone - PO Q3H PRN PAIN LEVEL 4 - 6 Oxycodone HCl 20 mg 07/24/18 22:00 Oxycontin - PO BID LUCY Senna 2 tab 07/22/18 22:00 07/23/18 22:14 Senna - PO 2 tab HS LUCY Administration ASSESSMENT/PLAN: General NAD CV S1 S2 RRR no murmur/rub/gallop lungs CTA no wheezing/rales/rhonchi Abdomen soft NT/ND no suprapubic distention or tenderness Extremities no calf tenderness +drain in place with serosangenous drainage CBCD WBC 8.7 K/mm3 (4.0-10.0) 07/23/18 05:30 RBC 3.01 M/mm3 (4.00-5.60) L 07/23/18 05:30 Hgb 10.5 GM/dL (11.7-16.9) L 07/23/18 05:30 Hct 30.1 % (35.4-49) L 07/23/18 05:30 MCV 100.0 fl (80-96) H 07/23/18 05:30 MCHC 34.8 g/dl (32.0-35.9) 07/23/18 05:30 RDW 13.2 % (11.9-15.9) 07/23/18 05:30 Plt Count 186 K/MM3 (134-434) 07/23/18 05:30 MPV 8.4 fl (7.5-11.1) 07/23/18 05:30 CMP Sodium 137 mmol/L (136-145) 07/23/18 05:30 Potassium 3.7 mmol/L (3.5-5.1) 07/23/18 05:30 Chloride 102 mmol/L (98-107) 07/23/18 05:30 Carbon Dioxide 30 mmol/L (21-32) 07/23/18 05:30 Anion Gap 5 MMOL/L (8-16) L 07/23/18 05:30 BUN 8 mg/dL (7-18) 07/23/18 05:30 Creatinine 0.7 mg/dL (0.55-1.3) 07/23/18 05:30 Creat Clearance w eGFR 114.65 (>60) 07/23/18 05:30 Calcium 8.4 mg/dL (8.5-10.1) L 07/23/18 05:30 assessment and plan 63 year old male with history of CAD with 1 stent and tobacco use who presented for scheduled hardware removal and revision surgery 1. Neurogenic claudication with radiculopathy- s/p:1. Removal of hardware L4-L5 2. Inspection of fusion mass 3. L3 laminectomy 4. Revision laminectomy L4, L5 5. L3, L4, L5 osteotomies (facetectomies) 6. L3-L4 posterior lumbar interbody fusion with discectomy, and placement of biomechanical device (cage) 7. L3-L4 posterior instrumentation 8. L3-L4 posterolateral arthrodesis with bone allograft & bone autograft 9. Complex wound closure (20cm)on 07/19/18. durotomy repair done at that time. drain in place. cont pain control and further recommendations per ortho 2. Fever- better now will hold abx at this time. 4. continuous nicotine dependence- nicotine patch. interested in quitting. handout to be given on discharge 7. DVT ppx- SCD. no pharmacologic in light of recent surger 8. stable for transfer to floors Visit type - Emergency Visit Emergency Visit: Yes ED Registration Date: 07/19/18 Care time: The patient presented to the Emergency Department on the above date and was hospitalized for further evaluation of their emergent condition. - New Patient This patient is new to me today: Yes Date on this admission: 07/24/18 - Critical Care Critical Care patient: No - Discharge Referral Referred to [facility] No
--- NOTE | 2018-07-24 12:04 | PN ---
Physical Exam: SUBJECTIVE: Patient seen and examined HD# 6 ICU Day 6 POD 5 Overnight Events: No acute events reported overnight. Pt afebrile. States pain is manageable. Denies chest pain, SOB, and numbness/tingling. Was OOB again yesterday with PT. Passing flatus but no BM. No further nausea/vomiting. Tolerating soft diet. OBJECTIVE: Vital Signs Period Temp Pulse Resp BP Sys/العلي Pulse Ox Last 24 Hr 98.2 F-99 F 61-91 15-19 110-154/58-94 93-93 Intake & Output 07/23/18 07/24/18 07/24/18 23:59 07:59 15:59 Intake Total 2250 Output Total 5 Balance 2250 -5 Intake: IV 2000 Lactated Ringers Solution 2000 1,000 ml @ 125 mls/hr IV ASDIR LUCY Rx#: [id number] Oral 250 Output: Drainage 5 Back 5 Other: Voiding Method Urinal Urinal # Unmeasured Voids Void 3 Bowel Movement No Lines: - PIV Drains: - Wound drain w/ serosanguinous output in container Supplemental Oxygen: None Physical Exams: GENERAL: The patient is awake, alert, and fully oriented, in no acute distress. HEAD: Normal with no signs of trauma. LUNGS: Breath sounds equal, clear to auscultation bilaterally, no wheezes, no crackles, no accessory muscle use. HEART: Regular rate and rhythm, S1, S2 without murmur, rub or gallop. ABDOMEN: Soft, nontender, nondistended. BACK: Post-op surgical dressings in place; appear clean, dry, and intact. EXTREMITIES: 2+ pulses, warm, well-perfused, no edema. NEUROLOGICAL: Moving all four extremities spontaneously. PSYCH: Normal mood, normal affect. SKIN: Warm and dry. Drips: - None Anti Infectives: - None Laboratory Results - last 24 hr 07/24/18 05:30 Sodium 135 L Potassium 3.8 Chloride 102 Carbon Dioxide 28 Anion Gap 5 L BUN 8 Creatinine 0.6 Creat Clearance w eGFR 136.97 Random Glucose 92 Calcium 8.4 L Phosphorus 3.2 Magnesium 1.6 L Active Medications Generic Name Dose Route Start Last Admin Trade Name Freq PRN Reason Stop Dose Admin Acetaminophen 650 mg 07/20/18 18:00 07/24/18 11:39 Tylenol - PO 650 mg Q6HPO LUCY Administration Chlorhexidine Gluconate 1 applic 07/19/18 22:00 07/23/18 22:14 Hibiclens For Decolonization - TP 1 applic HS [facility] Administration Docusate Sodium 100 mg 07/22/18 10:00 07/24/18 09:02 Colace - PO 100 mg BID LUCY Administration Mupirocin 1 applic 07/19/18 22:00 07/24/18 10:42 Bactroban Ointment (For Decolonization) - NS 07/24/18 21:59 1 applic BID LUCY Administration Nicotine 14 mg 07/20/18 08:36 Nicoderm Patch - TD DAILY PRN WITHDRAWAL(CONT SUBST) Ondansetron HCl 4 mg 07/19/18 19:23 07/22/18 06:45 Zofran Injection IVPUSH 4 mg Q6H PRN Administration NAUSEA AND/OR VOMITING Oxycodone HCl 10 mg 07/24/18 11:06 Roxicodone - PO Q3H PRN PAIN LEVEL 7 - 10 Oxycodone HCl 5 mg 07/24/18 11:21 07/24/18 11:38 Roxicodone - PO 5 mg Q3H PRN Administration PAIN LEVEL 4 - 6 Oxycodone HCl 20 mg 07/24/18 22:00 Oxycontin - PO BID LC[facility]Y Senna 2 tab 07/22/18 22:00 07/23/18 22:14 Senna - PO 2 tab HS LUCY Administration ASSESSMENT/PLAN: 63 year old male with history of L4,L5 fusion, CAD s/p stent. S/p: 1. Removal of hardware L4-L5 2. Inspection of fusion mass 3. L3 laminectomy 4. Revision laminectomy L4, L5 5. L3, L4, L5 osteotomies (facetectomies) 6. L3-L4 posterior lumbar interbody fusion with discectomy, and placement of biomechanical device (cage) 7. L3-L4 posterior instrumentation 8. L3-L4 posterolateral arthrodesis with bone allograft & bone autograft 9. Complex wound closure (20cm) Surgery complicated by intraoperative durotomy. Post-op care plan per Dr. Tuttle. Neuro (& Psych): - A/O x4. No sedation drips. - S/p lumbar spinal surgery as detailed above. Nursing nurochecks qShift. - Pain control: Acetaminophen q6h and Oxycodone BID and Oxycodone q3h PRN for breakthrough. No NSAIDS. - Zofran PRN for nausea. - Active smoker. Nicotine patch PRN. Endocrine: - Hypomagnesemia this morning. Replenished. - Will continue to trend electrolyte. Cardiovascular: - CAD holding antiplatelet therapy given recent surgery. Pulm / Resp: - Stable on room air. - Encouraged IS Gastrointestinal: - Colac for post-op constipation. Passing flatus. Hematologic: - H/H stable this morning. - Drain to gravity. Continue to monitor output. Awaiting surgery service to d/c. Infectious Disease: - Afebrile overnight. No tachycardia or hypotension. No leukocytosis. Low suspicion for infectious process. Musculoskeletal: - No bending, lifting (>5 lbs), or twisting for 9-12 months - Encourage PT and OOB FEN: - Soft diet Prophylaxis: - DVT: DAYNE's, SCD's. - GI: Not indicated. Dispo: Pt stable for care to be de-escalated to med/surg for further post-op recovery. Gilbert Silverman MD, PGY1 ICU Consult Service Visit type - Emergency Visit Emergency Visit: No - New Patient This patient is new to me today: No - Critical Care Critical Care patient: Yes Total Critical Care Time (in minutes): 36 Critical Care Statement: The care of this patient involved high complexity decision making to prevent further life threatening deterioration of the patient 's condition and/or to evaluate & treat vital organ system(s) failure or risk of failure.
[2018-07-24] MEDS ORDERED: ONDANSETRON 4 MG/2 ML VIAL IVPUSH PRN (20:30)
[2018-07-24] MEDS ORDERED: NICOTINE 14 MG/24 HOURS TOPICAL PATCH TD PRN (20:30)
[2018-07-24] MEDS: SENNOSIDES 8.6MG TABLET (FP) PO SCH (21:07)
[2018-07-24] MEDS: oxyCODONE HCL 20 MG SUSTAINED ACTING TABLET PO SCH (21:08)
[2018-07-24] MEDS ORDERED: oxyCODONE HCL 20 MG SUSTAINED ACTING TABLET PO SCH (22:00)
[2018-07-24] MEDS ORDERED: oxyCODONE HCL 5 MG TABLET PO SCH (22:00)
--- NOTE | 2018-07-24 23:04 | PN ---
Progress Note (short form) - Note Progress Note: 63M s/p removal of hardware, L3-L5 posterior decompression, L3-L4 PLIF, & L3-L4 posterior spinal instrumented fusion POD #5. Pain well controlled. No acute events overnight. Pt. denies overnight history of headaches, chest pain, shortness of breath, nausea, vomiting, chills, & sweats. (+) Voiding; (+) Flatus; (+) BM. Ambulating in hallway. Tolerating regular diet. All labs and vitals reviewed. PE: AAO x 3, NAD. Abdomen: soft, non-tender. L-Spine: Incision, dressing C/D/I. Drain removed on rounds. B/L LE M: L2-S1 intact, at least 3/5. B/L LE S: L2-S1 2/2. 63M s/p removal of hardware, L3-L5 posterior decompression, L3-L4 PLIF, & L3-L4 posterior spinal instrumented fusion POD #5. -Pain control: NO NSAID's. -DVT PPx: -Mechanical only: DAYNE's, SCD's. -Chemical: None. -Incentive spirometry. -PT/OT/Rehab, OOB. -WBAT B/L LE. -Regular diet. -Bowel regimen. -No bending, lifting (>5 lbs), or twisting for 9-12 months. -Care per ICU & medical hospitalist team. -Discharge planning: f/u 7-10 days after discharge at [facility] office; call for appointment; . -Will follow. Samir Tuttle MD (Orthopaedic Surgery).
[2018-07-25] MEDS: ACETAMINOPHEN 325 MG TABLET (FP) PO SCH ×4 (01:06→17:02)
[2018-07-25] MEDS: oxyCODONE HCL 5 MG TABLET PO PRN ×5 (01:17→18:43)
[2018-07-25] MEDS: oxyCODONE HCL 20 MG SUSTAINED ACTING TABLET PO SCH ×2 (09:02→21:52)
[2018-07-25] MEDS: DOCUSATE SODIUM 100 MG CAPSULE (FP) PO SCH ×2 (09:06→21:52)
[2018-07-25 09:33] LABS: ANION GAP 5 MMOL/L (8-16); BLOOD UREA NITROGEN 11 mg/dL (7-18); CHLORIDE 99 mmol/L (98-107); CO2 28 mmol/L (21-32); CREATININE 0.7 mg/dL (0.55-1.3); GLUCOSE,RANDOM 96 mg/dL (74-106); MAGNESIUM 1.8 mg/dL (1.8-2.4); PHOSPHOROUS 3.3 mg/dL (2.5-4.9); POTASSIUM 3.7 mmol/L (3.5-5.1); SODIUM 132 mmol/L (136-145)
--- NOTE | 2018-07-25 10:51 | PN ---
Physical Exam: SUBJECTIVE: Patient seen and examined he has low grade fever last night no resp or urinary symptom off abx he is ambulatory ate well OBJECTIVE: Vital Signs Period Temp Pulse Resp BP Sys/العلي Pulse Ox Last 24 Hr 98.9 F-100 F 71-89 10-20 115-150/73-94 General NAD CV S1 S2 RRR no murmur/rub/gallop lungs CTA no wheezing/rales/rhonchi Abdomen soft NT/ND no suprapubic distention or tenderness Extremities no calf tenderness CBC, BMP 07/23/18 05:30 07/25/18 07:45 Current Medications Acetaminophen (Tylenol -) 650 mg PO Q6HPO COUNT INCLUDES THE [facility] Last Admin: 07/25/18 05:50 Dose: Not Given Docusate Sodium (Colace -) 100 mg PO BID COUNT INCLUDES THE [facility] Last Admin: 07/25/18 09:06 Dose: 100 mg Nicotine (Nicoderm Patch -) 14 mg TD DAILY PRN PRN Reason: WITHDRAWAL(CONT SUBST) Ondansetron HCl (Zofran Injection) 4 mg IVPUSH Q6H PRN PRN Reason: NAUSEA AND/OR VOMITING Oxycodone HCl (Roxicodone -) 10 mg PO Q3H PRN PRN Reason: PAIN LEVEL 7 - 10 Last Admin: 07/25/18 05:48 Dose: 10 mg Oxycodone HCl (Roxicodone -) 5 mg PO Q3H PRN PRN Reason: PAIN LEVEL 4 - 6 Oxycodone HCl (Oxycontin -) 20 mg PO BID COUNT INCLUDES THE [facility] Last Admin: 07/25/18 09:02 Dose: 20 mg Senna (Senna -) 2 tab PO HS COUNT INCLUDES THE [facility] Last Admin: 07/24/18 21:07 Dose: 2 tab ASSESSMENT/PLAN: 63 year old male with history of CAD with 1 stent and tobacco use who presented for scheduled hardware removal and revision surgery 1. s/p continue pain control and will discharge. 2. Fever- better now , off abx at this time. Will continue to watch now 4. continuous nicotine dependence- nicotine patch. interested in quitting. handout to be given on discharge 7. DVT ppx- SCD. no pharmacologic in light of recent surger Visit type - Emergency Visit Emergency Visit: Yes ED Registration Date: 07/19/18 Care time: The patient presented to the Emergency Department on the above date and was hospitalized for further evaluation of their emergent condition. - New Patient This patient is new to me today: No - Critical Care Critical Care patient: No - Discharge Referral Referred to [facility] Med P.C.: No
[2018-07-25] MEDS: SENNOSIDES 8.6MG TABLET (FP) PO SCH (21:52)
[2018-07-26] MEDS: ACETAMINOPHEN 325 MG TABLET (FP) PO SCH ×4 (00:34→17:08)
[2018-07-26] MEDS: oxyCODONE HCL 5 MG TABLET PO PRN ×7 (00:52→23:28)
[2018-07-26] MEDS: oxyCODONE HCL 20 MG SUSTAINED ACTING TABLET PO SCH (09:13)
[2018-07-26] MEDS: DOCUSATE SODIUM 100 MG CAPSULE (FP) PO SCH ×2 (09:14→21:57)
[2018-07-26 09:33] LABS: BASO % 0.4 % (0-2.0); EOS % 1.3 % (0-4.5); HEMATOCRIT 33.5 % (35.4-49); HEMOGLOBIN 11.5 GM/dL (11.7-16.9); LYMPH % 23.6 % (8-40); MCH 34.8 pg (25.7-33.7); MCHC 34.3 g/dl (32.0-35.9); MEAN CELL VOLUME 101.4 fl (80-96); MEAN PLT VOLUME 8.3 fl (7.5-11.1); MONO % 15.5 % (3.8-10.2); NEUT % 59.2 % (42.8-82.8); PLATELET COUNT 283 K/MM3 (134-434); RBC 3.31 M/mm3 (4.00-5.60); WHITE BLOOD COUNT 6.1 K/mm3 (4.0-10.0)
--- NOTE | 2018-07-26 10:03 | PN ---
Physical Exam: SUBJECTIVE: Patient seen and examined. He complains of back pain. OBJECTIVE: Vital Signs Period Temp Pulse Resp BP Sys/العلي Pulse Ox Last 24 Hr 98.2 F-99.8 F 18-86 20-70 107-150/73-89 GENERAL: The patient is awake, alert, and fully oriented, in no acute distress. LUNGS: Breath sounds equal, clear to auscultation bilaterally, no wheezes, no crackles, no accessory muscle use. HEART: Regular rate and rhythm, S1, S2 without murmur, rub or gallop. ABDOMEN: Soft, nontender, nondistended, normoactive bowel sounds, no guarding, no rebound, no hepatosplenomegaly, no masses. EXTREMITIES: 2+ pulses, warm, well-perfused, no edema. Laboratory Results - last 24 hr 07/26/18 06:50 WBC 6.1 RBC 3.31 L Hgb 11.5 L Hct 33.5 L MCV 101.4 H MCH 34.8 H MCHC 34.3 RDW 13.0 Plt Count 283 D MPV 8.3 Absolute Neuts (auto) 3.6 Neutrophils % 59.2 Lymphocytes % 23.6 Monocytes % 15.5 H Eosinophils % 1.3 Basophils % 0.4 Nucleated RBC % 0 Active Medications Generic Name Dose Route Start Last Admin Trade Name Freq PRN Reason Stop Dose Admin Acetaminophen 650 mg 07/25/18 00:00 07/26/18 05:38 Tylenol - PO Not Given Q6HPO LUCY Docusate Sodium 100 mg 07/24/18 22:00 07/26/18 09:14 Colace - PO 100 mg BID LUCY Administration Nicotine 14 mg 07/24/18 20:30 07/26/18 09:14 Nicoderm Patch - TD 14 mg DAILY PRN Administration WITHDRAWAL(CONT SUBST) Ondansetron HCl 4 mg 07/24/18 20:30 Zofran Injection IVPUSH Q6H PRN NAUSEA AND/OR VOMITING Oxycodone HCl 10 mg 07/24/18 20:30 07/26/18 04:10 Roxicodone - PO 10 mg Q3H PRN Administration PAIN LEVEL 7 - 10 Oxycodone HCl 5 mg 07/24/18 20:30 Roxicodone - PO Q3H PRN PAIN LEVEL 4 - 6 Oxycodone HCl 20 mg 07/24/18 22:00 07/26/18 09:13 Oxycontin - PO 20 mg BID LUCY Administration Senna 2 tab 07/24/18 22:00 07/25/18 21:52 Senna - PO 2 tab HS LUCY Administration ASSESSMENT/PLAN: This is a 63 year old man with a history of CAD with stent who was admitted for lumbar hardware removal and revision laminectomy. 1. Lumbar disc disease with radiculopathy and neurogenic claudication - s/p removal of hardware L4-L5; inspection of fusion mass; L3 laminectomy; revision laminectomy L4, L5; L3, L4, L5 osteotomies (facetectomies); L3-L4 posterior lumbar interbody fusion with discectomy, and placement of biomechanical device (cage); L3-L4 posterior instrumentation; L3-L4 posterolateral arthrodesis with bone allograft and bone autograft; complex wound closure (20cm); intra-operative durotomy repair on 07/19 - Pain control with OxyContin, oxycodone as needed - Ambulated 150' with antalgic gait with PT on 07/23 - Continue PT 2. Fever - Resolved 3. Vomiting - Resolved 4. Nicotine dependence - Continue nicotine patch 5. Hypokalemia - Resolved 6. Hypomagnesemia - Resolved 7. Hyponatremia Visit type - Emergency Visit Emergency Visit: No - New Patient This patient is new to me today: Yes Date on this admission: 07/26/18 - Critical Care Critical Care patient: No - Discharge Referral Referred to [facility] Med P.C.: No
[2018-07-26] MEDS: oxyCODONE HCL 10 MG SUSTAINED ACTING TABLET PO SCH (21:56)
[2018-07-26] MEDS: SENNOSIDES 8.6MG TABLET (FP) PO SCH (21:57)
[2018-07-27] MEDS: ACETAMINOPHEN 325 MG TABLET (FP) PO SCH ×3 (00:12→11:48)
[2018-07-27] MEDS: oxyCODONE HCL 5 MG TABLET PO PRN ×5 (02:29→15:27)
[2018-07-27 08:26] LABS: ANION GAP 6 MMOL/L (8-16); BLOOD UREA NITROGEN 17 mg/dL (7-18); CHLORIDE 102 mmol/L (98-107); CO2 28 mmol/L (21-32); CREATININE 0.8 mg/dL (0.55-1.3); GLUCOSE,RANDOM 100 mg/dL (74-106); POTASSIUM 4.1 mmol/L (3.5-5.1); SODIUM 136 mmol/L (136-145)
[2018-07-27 09:39] LABS: MAGNESIUM 1.8 mg/dL (1.8-2.4)
[2018-07-27] MEDS: oxyCODONE HCL 10 MG SUSTAINED ACTING TABLET PO SCH (10:02)
[2018-07-27] MEDS: DOCUSATE SODIUM 100 MG CAPSULE (FP) PO SCH (10:03)
[2018-07-27 15:09] VITALS: BP 108/63; PULSE 81; TEMP 98.3
--- NOTE | 2018-07-27 15:32 | DS ---
Physical Exam: SUBJECTIVE: Patient seen and examined at the bedside. in no acute distress. comfortable at rest. only c/o of increased back pain with ambulation. OBJECTIVE: discharge home with surgery follow up Vital Signs Period Temp Pulse Resp BP Sys/العلي Pulse Ox Last 24 Hr 97.9 F-98.4 F 70-83 18-20 93-134/61-77 98-98 PHYSICAL EXAM GENERAL: The patient is awake, alert, and fully oriented, in no acute distress. HEAD: Normal with no signs of trauma. EYES: PERRL, extraocular movements intact, sclera anicteric, conjunctiva clear. ENT: Ears normal, nares patent, oropharynx clear without exudates, moist mucous membranes. NECK: Trachea midline, full range of motion, supple. LUNGS: Breath sounds equal, clear to auscultation bilaterally, no wheezes, no crackles, no accessory muscle use. HEART: Regular rate and rhythm ABDOMEN: Soft, nontender, nondistended, normoactive bowel sounds, no guarding, no rebound, no hepatosplenomegaly, no masses. EXTREMITIES: no edema. NEUROLOGICAL: Normal speech, ambulated with RW, gait steady PSYCH: Normal mood, normal affect. SKIN: dry back dressing LABS Laboratory Results - last 24 hr 07/27/18 06:30 Sodium 136 Potassium 4.1 Chloride 102 Carbon Dioxide 28 Anion Gap 6 L BUN 17 Creatinine 0.8 Creat Clearance w eGFR 98.28 Random Glucose 100 Calcium 9.0 Magnesium 1.8 HOSPITAL COURSE: Date of Admission:07/19/18 Date of Discharge: 07/27/18 Patient is a 63 year old male with a significant past medical history of CAD with stent who was admitted for lumbar hardware removal and revision laminectomy. Surgery: Lumbar disc disease with radiculopathy and neurogenic claudication s/p removal of hardware L4-L5; inspection of fusion mass; L3 laminectomy; revision laminectomy L4, L5; L3, L4, L5 osteotomies (facetectomies); L3-L4 posterior lumbar interbody fusion with discectomy, and placement of biomechanical device (cage); L3-L4 posterior instrumentation; L3-L4 posterolateral arthrodesis with bone allograft and bone autograft; complex wound closure (20cm); intra-operative durotomy repair on 07/19 Pain controlled with oxycontin. oxycodone increased for increased back pain with ambulation. continue on bowel regimen. ambulated today with PT. will d/c home with VNS for PT at home. Electrolyte imbalance Hyponatremia. resolved Hypokalemia. resolved Hypomagnesium. resolved discharge home with Dr. Tuttle follow up. I called Dr. Tuttle office, spoke to Tiffanie who confirmed that narcotic medication to be called in by Dr. Tuttle office at patient's pharmacy. 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 Ramirez: You will be discharged home today. We called Dr. Tuttle office and pierrey will be prescribing in your narcotic pain medications into your pharmacy. Oxycodone 15mg every 3-4 hours, and oxycontin 30mg every 12 hours. Please continue the Senna and Colace so that you do not get constipated. As per Dr. Tuttle: continue to walk with a rolling walker as tolerated No bending, lifting (>5 lbs), or twisting for 9-12 months. Follow up within 7-10 days after discharge at [facility] [place] office; call for appointment; . Thank you for allowing us to care for you. Referrals: Samir Tuttle MD [Staff Physician] - 1 Week Disposition: HOME - Home Medications Comprehensive Discharge Medication List: Ambulatory Orders Oxycodone HCl/Acetaminophen [Percocet 5-325 mg Tablet] 1 - 2 tab PO Q6H Docusate Sodium [Colace -] 100 mg PO BID capsule 07/27/18 Sennosides [Senna -] 2 tab PO HS tablet 07/27/18 Walker [Ultra-Light Rollator] 1 each [facility] #1 each 07/27/18 This patient is new to me today: Yes Date on this admission: 07/27/18 Emergency Visit: No Critical Care patient: No - Discharge Referral Referred to [facility] Med P.C.: No
== END 2018-07-27 15:58 | disposition home or self-care (01) | DRG 304 ==
LOC: JSAMEDAYSX 10:14 → JICU 21:07 → J8W 07-24 19:35
PROVIDERS: ADMIT Orthopaedic Surgery Orthopaedic Surgery of the Spine; ATTEND Nurse Practitioner Family
PROC: 0SG00AJ Fusion of Lumbar Vertebral Joint with Interbody Fusion Device, Posterior Approach, Anterior Column, Open Approach (ICD-10-PCS; 2018-07-19)
PROC: 0SG00K1 Fusion of Lumbar Vertebral Joint with Nonautologous Tissue Substitute, Posterior Approach, Posterior Column, Open Approach (ICD-10-PCS; 2018-07-19)
PROC: 0SB20ZZ Excision of Lumbar Vertebral Disc, Open Approach (ICD-10-PCS; 2018-07-19)
PROC: 00QT0ZZ Repair Spinal Meninges, Open Approach (ICD-10-PCS; 2018-07-19)
PROC: B01BZZZ Fluoroscopy of Spinal Cord (ICD-10-PCS; 2018-07-19)
PROC: 4A11X4G Monitoring of Peripheral Nervous Electrical Activity, Intraoperative, External Approach (ICD-10-PCS; 2018-07-19)
PROC: 0SP00AZ Removal of Interbody Fusion Device from Lumbar Vertebral Joint, Open Approach (ICD-10-PCS; principal; 2018-07-19 08:00)
DX: M48.062 Spinal stenosis, lumbar region with neurogenic claudication (principal); M54.16 Radiculopathy, lumbar region; M53.2X6 Spinal instabilities, lumbar region; I25.10 Atherosclerotic heart disease of native coronary artery without angina pectoris; I10 Essential (primary) hypertension; F17.210 Nicotine dependence, cigarettes, uncomplicated; E83.42 Hypomagnesemia; M54.41 Lumbago with sciatica, right side; G89.29 Other chronic pain; E87.6 Hypokalemia; R50.9 Fever, unspecified; R11.10 Vomiting, unspecified; K59.09 Other constipation; E87.1 Hypo-osmolality and hyponatremia; Z95.5 Presence of coronary angioplasty implant and graft
CPT/HCPCS: 36415; 71045-TC-FY; 76000-TC-FY; 80048; 81003; 83735; 84100; 85025; 85027; 85610; 85730; 86850; 86900; 86901; 87040; 87070; 87205; 88300-TC; 88304-TC; 94760; 97116-GP; 97162-GP; J0131; J7030